=== PATIENT | female | born 1935 | race Caucasian/White ===

== ENCOUNTER → 2016-12-30 | Outpatient (CLI) | payer BC ==
[~2016-12-30] MED LIST: ASPI81TA28 PO; ATEN50TA8 PO; CALC-20 PO; MULT-506 PO
[2016-12-30 17:12] LABS: BASO % 1.1 %; BASO ABS # 0.05 K/uL (0-0.2); COMPLETE YES; EOS % 2.5 %; HEMATOCRIT 34.6 % (37-47); IG% 0.2 %; LYMPH % 16.7 %; LYMPH ABS # 0.79 K/uL (1.2-3.4); MEAN CELL VOLUME 106.1 fL (80-100); MEAN CORPUSCULAR HEMOGLOBIN 36.5 pg (25-34); MEAN CORPUSCULAR HGB CONC 34.4 g/dl (32-36); MEAN PLATELET VOLUME 10.4 fL (7.4-10.4); MONO % 15.6 %; NEUT % 63.9 %; PLATELET COUNT 205 K/uL (130-400); RED BLOOD COUNT 3.26 M/uL (4.2-5.4); WHITE BLOOD COUNT 4.73 K/uL (4.8-10.8)
[2016-12-30 20:06] LABS: AST/SGOT 22 U/L (15-37); BLOOD UREA NITROGEN 24 mg/dl (7-18); BUN/CREATININE RATIO 31.4 (10-20); CALCIUM 9.5 mg/dl (8.5-10.1); CARBON DIOXIDE 27 mmol/L (21-32); CHLORIDE 103 mmol/L (98-107); CREATININE 0.77 mg/dl (0.60-1.20); GLUCOSE 94 mg/dl (70-99); POTASSIUM 5.1 mmol/L (3.5-5.1); SODIUM 138 mmol/L (136-145); TRIGLYCERIDES 39 mg/dl (0-150); VERY LOW DENSITY LIPOPROT CALC 8 mg/dl
[2016-12-30 20:20] LABS: ALB/GLOB RATIO 1.1 (0.9-2); ALKALINE PHOSPHATASE 47 U/L (45-117); ALT/SGPT 28 U/L (12-78); CHOLESTEROL 229 mg/dl (0-200); CHOLESTEROL/HDL RATIO 1.7; HDL CHOLESTEROL 131 mg/dl; LDL CHOLESTEROL CALCULATED 90 mg/dl
--- NOTE | 2017-01-04 13:29 | CODING QUERY MEDICAL NECESSITY ---
SUPPORTING DIAGNOSIS NEEDED A supporting diagnosis is required for the test/procedure performed on this patient in order for us to be reimbursed by the patient's insurance. Please provide a supporting diagnosis for the following test/procedure listed below next to the test name along with your signature. *If there is no additional diagnosis for this patient that would support the following test/procedure please document that below next to the test/procedure. Test(s)/Procedure(s) that require a supporting diagnosis: DOS 12/30 * Vitamin B12 DIAGNOSIS: Provider Signature: Date: Thank you Gayatri Clark Health Information Management Once completed, please kindly fax back to [phone] For questions please call [phone]
== END | disposition home or self-care (01) ==
LOC: C.LABBC 14:26
PROVIDERS: ATTEND Internal Medicine Geriatric Medicine
DX: E78.5 Hyperlipidemia, unspecified (principal); Q99.8 Other specified chromosome abnormalities; M81.0 Age-related osteoporosis without current pathological fracture; R63.4 Abnormal weight loss; Z85.3 Personal history of malignant neoplasm of breast

== ENCOUNTER → 2017-02-16 | Outpatient (CLI) | payer BC | END | disposition home or self-care (01) | LOC: C.MAMM 13:28 | PROVIDERS: ATTEND Internal Medicine Geriatric Medicine | DX: M81.0 Age-related osteoporosis without current pathological fracture (principal) ==

== ENCOUNTER → 2017-07-27 | Outpatient (CLI) | payer BC ==
--- NOTE | 2017-07-28 07:43 | MAMMOGRAPHY REPORT ---
BILATERAL DIGITAL SCREENING MAMMOGRAM TOMOSYNTHESIS WITH CAD: 07/27/2017 CLINICAL HISTORY: Asymptomatic. Personal history of breast cancer. Prior reports from the electrical design technologist performing the exam, the left breast was diffusely fi rm and there was crusting around the nipple. TECHNIQUE: Breast tomosynthesis in addition to standard 2D mammography was performed. Current study was also evaluated with a Computer Aided Detection (CAD) system. COMPARISON: Comparison is made to exams dated: 07/22/2016 mammogram, 07/18/2015 mammogram, 07/17/2014 m ammogram - [facility], 07/12/2013 mammogram, and 06/22/2012 mammogram - [facility]. BREAST COMPOSITION: The tissue of both breasts is extremely dense, which lowers the sensitivity of m ammography. FINDINGS: There is a possible faint cluster of microcalcifications in the upper outer posterior righ t breast, for which additional spot magnification views are recommended. There is diffuse skin irregularity, asymmetric size and decreased visualization of the left breast, l ikely due to prior surgery. There is also prominence of the left nipple, and it is difficult to tell if this could also represent a superimposed subareolar focal asymmetry. Further workup in the left breast is also recommended with attempt to obtain a nipple in profile tomosynthesis view as well as u ltrasound throughout the breast to exclude any suspicious mass or focal skin thickening given poor ev aluation mammographically. IMPRESSION: ACR BI-RADS CATEGORY 0: INCOMPLETE EVALUATION: NEED ADDITIONAL IMAGING EVALUATION 1. The possible clustered microcalcifications in the right upper outer quadrant and left breast poss ible subareolar asymmetry need additional imaging evaluation. Attempt should be made to obtain a lef t breast view with the nipple in profile. The patient will be called to schedule an appointment. Approximately 10% of breast cancers are not detected with mammography. A negative mammographic report should not delay biopsy if a clinically suggestive mass is present. Diandra Stephens M.D. ay/:07/27/2017 16:24:56 Dump Grader: Katie ESCOBAR(Chelsi)(Jesse), [facility] letter sent: Addl Imaging 0 BI-RADS Code: ACR BI-RADS Category 0: Incomplete Evaluation: Need Additional Imaging Evaluation
== END | disposition home or self-care (01) ==
LOC: C.MAMM 13:52
PROVIDERS: ATTEND Internal Medicine Geriatric Medicine
DX: Z12.31 Encounter for screening mammogram for malignant neoplasm of breast (principal); Z85.3 Personal history of malignant neoplasm of breast; Z08 Encounter for follow-up examination after completed treatment for malignant neoplasm; R92.0 Mammographic microcalcification found on diagnostic imaging of breast

== ENCOUNTER → 2017-08-02 | Outpatient (CLI) | payer BC ==
--- NOTE | 2017-08-02 14:47 | MAMMOGRAPHY REPORT ---
BILATERAL DIGITAL DIAGNOSTIC MAMMOGRAM TOMOSYNTHESIS AND TARGETED LEFT ULTRASOUND: 08/02/2017 CLINICAL HISTORY: 81-year-old woman with a personal history of left breast cancer, status post lumpec declan and also prior benign left breast biopsy, called back from screening mammography for left breast asymmetry and right breast microcalcification. TECHNIQUE: Spot magnification right CC and ML; spot compression 2-D and tomosynthesis left CC and ML O views were obtained. COMPARISON: Comparison is made to exams dated: 07/27/2017 mammogram, 07/22/2016 mammogram, 07/18/2015 mammogram, 07/17/2014 mammogram - [facility], 07/12/2013 mammogram, and 06/22/2012 m ammogram - [facility]. BREAST COMPOSITION: The tissue of both breasts is extremely dense, which lowers the sensitivity of m ammography. FINDINGS: The spot magnification views of the right breast demonstrate a few scattered benign coarse and round microcalcifications. There are also 2 very faint clusters of punctate microcalcifications in the superior right breast, anterior and posterior aspect of the breast based on the spot magnific ation MLO view, measuring 1-2 mm. When comparing to prior available mammograms, these were likely pr esent on the 07/17/2014 mammogram and are therefore probably benign. The spot compression tomosynthesis views of the left breast demonstrate enlargement and irregularity of the nipple when comparing back to the 2007 and 2008 mammograms. There is a 12 mm asymmetry with p ossible associated architectural distortion in the immediate subareolar left breast (CC tomosynthesis slice ). Overall, there is increased density of the left breast comparing to all available prio r mammograms. A stable coiled biopsy marker in the upper outer anterior left breast. Further evalua tion with ultrasound was performed. Targeted ultrasound was performed in the left breast. There is ill-defined hypoechoic tissue versus mass in the retroareolar and slightly lateral left breast extending from 2:00 through 4:00 axes with indistinct and irregular borders. The biopsy marker clip evident mammographically is thought to be i dentified in the 2:00 periareolar region. This ill-defined hypoechoic mass measures approximately 1. 1 x 0.6 cm and is indeterminate. Comparison to any prior outside ultrasounds and/or ultrasound-guide d biopsies is recommended but this will likely need tissue sampling via an ultrasound-guided core bio psy. No obvious abnormality is identified of the nipple itself and it is unclear why the nipple appe ars more prominent mammographically. IMPRESSION: ACR BI-RADS CATEGORY 4: SUSPICIOUS, TARGETED ULTRASOUND ACR BI-RADS CATEGORY 4: SUSPICIO US 1. There is increased size of the left nipple and increasing density versus asymmetry throughout the left breast most prominent in the anterior subareolar breast. There is an ill-defined hypoechoic 1. 1 cm area of hypoechoic tissue on ultrasound that could represent a mass versus scar tissue. Compari son to any prior outside ultrasounds ultrasound-guided core biopsies is recommended. If these are un able to be obtained and if this hypoechoic area is not visualized on any prior imaging, ultrasound-gu ided core biopsy will be needed in the left breast retroareolar region. 2. There are 2 faint 1-2 mm groupings of punctate microcalcifications in the superior right breast, which may have been present dating back to the 2014 mammograms, therefore likely benign. Pending fur ther evaluation and possible biopsy in the left breast may continue to follow these microcalcificatio ns closely with repeat spot magnification views versus stereotactic biopsy. These results and recommendations were discussed with the patient at the time of the exam. Approximately 10% of breast cancers are not detected with mammography. A negative mammographic report should not delay biopsy if a clinically suggestive mass is present. Diandra Stephens M.D. ay/:08/02/2017 14:14:43 Property Worker: Bhargavi ESCOBAR(Chelsi)(M), [facility] letter sent: Abnormal 4/5 BI-RADS Code: ACR BI-RADS Category 4: Suspicious Ultrasound BI-RADS: ACR BI-RADS Category 4: Suspici ous
== END | disposition home or self-care (01) ==
LOC: C.MAMM 10:40
PROVIDERS: ATTEND Internal Medicine Geriatric Medicine
DX: R92.0 Mammographic microcalcification found on diagnostic imaging of breast (principal); N64.89 Other specified disorders of breast

== ENCOUNTER → 2018-01-05 | Outpatient (CLI) | payer BC ==
--- NOTE | 2018-01-05 13:27 | Discharge Instructions ---
Discharge Instructions Procedure Procedure Date: Jan 05, 2018. Reason for visit: Left Density/Asymmetry-2ND Us Poss Bx. Discharge Discharge Date: Jan 05, 2018. Discharge Diagnosis: status post breast biopsy Instructions Activity Recommendations: Additional Limitations (see below) Return to School/Work: no limitations Recommended Home Diet: No Limitations Provider Instructions: ACTIVITY RECOMMENDATIONS: * No lifting, pushing, pulling or exercising the affected side for three days. RETURN TO SCHOOL/WORK: * You may return to work/school after the procedure, but do not perform any strenuous activities for 24 to 48 hours. MEDICATIONS: * Tylenol (two 325 mg) every four to six hours if needed for mild pain (if not allergic to Tylenol). DIET: * Resume previous diet. SPECIAL CARE INSTRUCTIONS: * Keep biopsy site dry for 24 hours. May shower after 24 hours, but do not soak (bathe) incision. * May remove Tegaderm (plastic patch) tomorrow AFTER showering. * Leave the steri-strips on for one week. Allow the steri-strips to fall off by themselves. If not off after one week, you may remove them. You may place a Bandaid crosswise over the strips, if desired. * Apply ice 10 minutes on and 10 minutes off as needed. * Wear a bra at bedtime to sleep more comfortably for 2-3 days. * Your referring physician should have the results after approximately 5 to 7 business days. * Call for unusual bleeding, fever, drainage, etc or if you have any questions call during normal business hours or after hours call Dr Sheldon, . FOLLOW UP VISIT: Follow-up with Referring Physician as scheduled. Allergies Coded Allergies: No Known Allergies (Unverified , 03/28/14) Major Nixon Recommendations: Call your doctor if: * Temperature above 101 degrees * Pain not relieved by pain medicine ordered * There is increased drainage or redness from any incision * You have any unanswered questions or concerns. Your Doctors Instructions noted above were prepared by provider Anna Sheldon. Patient Signature Section: Patient Instructions Signature Page Deidra Clarissa Patient (or Guardian) Signature/Date: I have read and understand the instructions given to me by my caregivers. Caregiver/RN/Doctor Signature/Date: The above-named patient and/or guardian has received patient instructions on this date. + Original Patient Signature Page (only) stays with chart. Please make copy for patient.
--- NOTE | 2018-01-05 15:28 | MAMMOGRAPHY REPORT ---
ULTRASOUND GUIDED BIOPSY LEFT BREAST: 01/05/2018 CLINICAL HISTORY: Ill-defined hypoechoic region in the left lateral subareolar breast. PATIENT CONSENT: The procedure, risks and benefits were discussed with the patient and informed writt en consent was obtained. A timeout was performed immediately prior to the procedure. PROCEDURE DESCRIPTION: With ultrasound guidance, aseptic technique, and lidocaine as the local anesth etic (1% lidocaine to anesthetize the skin and 1% lidocaine with epinephrine to anesthetize the deepe r tissues), the ill-defined hypoechoic region in the left lateral subareolar breast was sampled 4 crow es with a 14-gauge Achieve biopsy needle. Immediately thereafter, with ultrasound guidance, aseptic technique, and lidocaine as the local anesthetic, a metallic localizer clip (ribbon-shaped) was place d at the biopsy site. Direct pressure was applied to the site immediately post procedure and hemosta sis was achieved. Postprocedure unilateral mammograms were performed which show a new ribbon-shaped biopsy marker clip at the site of the biopsied hypoechoic region. The patient tolerated the procedur e without complication. She was given wound care instructions. The specimens were sent to pathology for analysis. COMPARISON: Comparison is made to exams dated: 08/02/2017 ultrasound, 08/02/2017 mammogram, 07/27/20 17 mammogram, 07/22/2016 mammogram, 07/18/2015 mammogram, and 07/17/2014 mammogram - [facility]. IMPRESSION: ULTRASOUND GUIDED BIOPSY Ultrasound-guided core needle biopsy of the ill-defined hypoechoic region in the left lateral subareo lar breast, with clip placement. The patient will receive pathology results from her referring provi halima. Anna Sheldon M.D. /:01/05/2018 13:45:26 Radio Engineering Teacher: Hayley VELEZ)(Jesse), [facility]
== END | disposition home or self-care (01) ==
LOC: C.MAMM 12:34
PROVIDERS: ATTEND Internal Medicine Geriatric Medicine
DX: C50.912 Malignant neoplasm of unspecified site of left female breast (principal)

== ENCOUNTER → 2018-04-06 | Outpatient (CLI) | payer BC ==
[~2018-04-06] MED LIST changes: +HYDR-5688 PO; +TMPXEOPS OPR
== END | disposition home or self-care (01) ==
LOC: C.CPL 13:02
PROVIDERS: ATTEND Internal Medicine Hematology & Oncology
DX: C50.112 Malignant neoplasm of central portion of left female breast (principal)

== ENCOUNTER → 2018-04-21 | Outpatient (CLI) | payer BC ==
[2018-04-21 10:26] LABS: BASO ABS # 0.06 K/uL (0-0.2); EOS ABS # 0.15 K/uL (0-0.5); HEMATOCRIT 28.3 % (37-47); HEMOGLOBIN 9.7 g/dL (12.0-16.0); IG# 0.02 K/uL (0.00-0.02); LYMPH % 28.2 %; LYMPH ABS # 0.84 K/uL (1.2-3.4); MEAN CELL VOLUME 105.6 fL (80-100); MEAN CORPUSCULAR HEMOGLOBIN 36.2 pg (25-34); MEAN CORPUSCULAR HGB CONC 34.3 g/dl (32-36); MEAN PLATELET VOLUME 9.4 fL (7.4-10.4); MONO % 8.4 %; MONO ABS # 0.25 K/uL (0.11-0.59); NEUT % 55.7 %; NEUT ABS # 1.66 K/uL (1.4-6.5); PLATELET COUNT 230 K/uL (130-400); RED CELL DISTRIBUTION WIDTH SD 49.6 fL (36.4-46.3); WHITE BLOOD COUNT 2.98 K/uL (4.8-10.8)
[2018-04-21 10:46] LABS: ALBUMIN 3.3 gm/dl (3.4-5.0); ALKALINE PHOSPHATASE 56 U/L (45-117); ALT/SGPT 24 U/L (12-78); AST/SGOT 19 U/L (15-37); BLOOD UREA NITROGEN 24 mg/dl (7-18); CALCIUM 9.3 mg/dl (8.5-10.1); CARBON DIOXIDE 28 mmol/L (21-32); CREATININE 0.58 mg/dl (0.60-1.20); GLUCOSE 99 mg/dl (70-99); POTASSIUM 4.7 mmol/L (3.5-5.1); SODIUM 135 mmol/L (136-145); TOTAL PROTEIN 6.6 gm/dl (6.4-8.2)
== END | disposition home or self-care (01) ==
LOC: C.LABSPEC 10:13
PROVIDERS: ATTEND Internal Medicine Hematology & Oncology
DX: C50.112 Malignant neoplasm of central portion of left female breast (principal)

== ENCOUNTER → 2018-04-28 | Outpatient (CLI) | payer BC ==
[2018-04-28 10:46] LABS: HEMATOCRIT 28.7 % (37-47); HEMOGLOBIN 9.8 g/dL (12.0-16.0); MEAN CELL VOLUME 105.5 fL (80-100); MEAN CORPUSCULAR HGB CONC 34.1 g/dl (32-36); MEAN PLATELET VOLUME 9.9 fL (7.4-10.4); PLATELET COUNT 232 K/uL (130-400); RED CELL DISTRIBUTION WIDTH CV 13.2 % (11.5-14.5); RED CELL DISTRIBUTION WIDTH SD 50.1 fL (36.4-46.3); WHITE BLOOD COUNT 1.87 K/uL (4.8-10.8)
[2018-04-28 10:48] LABS: ALBUMIN 3.5 gm/dl (3.4-5.0); ALKALINE PHOSPHATASE 54 U/L (45-117); ALT/SGPT 28 U/L (12-78); AST/SGOT 21 U/L (15-37); BLOOD UREA NITROGEN 23 mg/dl (7-18); CALCIUM 9.6 mg/dl (8.5-10.1); CARBON DIOXIDE 27 mmol/L (21-32); CREATININE 0.63 mg/dl (0.60-1.20); GLUCOSE 89 mg/dl (70-99); POTASSIUM 4.3 mmol/L (3.5-5.1); SODIUM 134 mmol/L (136-145)
[2018-04-28 10:58] LABS: BASO % 1.6 %; BASO ABS # 0.03 K/uL (0-0.2); EOS % 5.3 %; IG# 0.01 K/uL (0.00-0.02); LYMPH % 42.2 %; LYMPH ABS # 0.79 K/uL (1.2-3.4); MONO % 10.2 %; MONO ABS # 0.19 K/uL (0.11-0.59); NEUT % 40.2 %; NEUT ABS # 0.75 K/uL (1.4-6.5)
== END | disposition home or self-care (01) ==
LOC: C.LABSPEC 10:17
PROVIDERS: ATTEND Internal Medicine Hematology & Oncology
DX: C50.112 Malignant neoplasm of central portion of left female breast (principal)

== ENCOUNTER → 2018-05-05 | Outpatient (CLI) | payer BC ==
[2018-05-05 10:11] LABS: BASO % 2.3 %; BASO ABS # 0.07 K/uL (0-0.2); EOS % 2.7 %; EOS ABS # 0.08 K/uL (0-0.5); HEMATOCRIT 29.4 % (37-47); HEMOGLOBIN 9.9 g/dL (12.0-16.0); IG# 0.01 K/uL (0.00-0.02); LYMPH % 30.2 %; MEAN CELL VOLUME 106.1 fL (80-100); MEAN CORPUSCULAR HEMOGLOBIN 35.7 pg (25-34); MEAN CORPUSCULAR HGB CONC 33.7 g/dl (32-36); MEAN PLATELET VOLUME 9.1 fL (7.4-10.4); MONO % 22.5 %; MONO ABS # 0.67 K/uL (0.11-0.59); NEUT ABS # 1.25 K/uL (1.4-6.5); PLATELET COUNT 251 K/uL (130-400); RED CELL DISTRIBUTION WIDTH CV 13.7 % (11.5-14.5); RED CELL DISTRIBUTION WIDTH SD 53.1 fL (36.4-46.3); WHITE BLOOD COUNT 2.98 K/uL (4.8-10.8)
[2018-05-05 10:32] LABS: ALBUMIN 3.4 gm/dl (3.4-5.0); BLOOD UREA NITROGEN 30 mg/dl (7-18); CALCIUM 9.1 mg/dl (8.5-10.1); CARBON DIOXIDE 23 mmol/L (21-32); CREATININE 0.66 mg/dl (0.60-1.20); GLUCOSE 88 mg/dl (70-99); POTASSIUM 4.8 mmol/L (3.5-5.1); SODIUM 137 mmol/L (136-145)
[2018-05-05 10:33] LABS: ALKALINE PHOSPHATASE 62 U/L (45-117); ALT/SGPT 27 U/L (12-78); AST/SGOT 23 U/L (15-37); TOTAL PROTEIN 6.9 gm/dl (6.4-8.2)
== END | disposition home or self-care (01) ==
LOC: C.LABSPEC 10:00
PROVIDERS: ATTEND Internal Medicine Hematology & Oncology
DX: C50.112 Malignant neoplasm of central portion of left female breast (principal)

== ENCOUNTER 2019-10-05 13:06 | Inpatient (IN) ==
[2019-10-05] MEDS ORDERED: SODIUM CHLORIDE 0.9% 1000ML 1,000 ML IV ONE (13:29)
[2019-10-05] MEDS ORDERED: cefTRIAXone SODIUM 1,000 MG/50 ML BAG IV STA (13:32)
[2019-10-05 14:15] LABS: Appearance Urine Turbid (Clear); Bacteria Urine Automated 1+ (Negative); Blood Urine 3+ (Negative); Color Urine Dark Yellow; Glucose Urine UA Negative (Negative); Ketones Urine Negative (Negative); Leukocyte Esterase Urine 2+ (Negative); Nitrite Urine Positive (Negative); Protein Urine 2+ (Negative); RBC Urine Automated >30 /hpf (0-4); Specific Gravity Urine 1.028 (1.000-1.030); Urobilinogen Urine Negative (Negative); WBC Urine Automated >30 /hpf (0-5)
[2019-10-05 14:26] LABS: Bilirubin Urine Negative (Negative); Ictotest Urine Negative (Negative)
[2019-10-05 14:38] LABS: Basophils # (auto) 0.02 K/uL (0-0.2); Basophils % (auto) 0.3 %; Hematocrit (blood only) 32.7 % (37-47); Hemoglobin 10.8 g/dL (12.0-16.0); Immature Granulocytes # (auto) 0.01 K/uL (0.00-0.02); Immature Granulocytes % (auto) 0.1 %; Lymphocytes # (auto) 0.72 K/uL (1.2-3.4); Lymphocytes % (auto) 10.2 %; Mean Corpuscular Hemoglobin 33.9 pg (25-34); Mean Corpuscular Volume 102.5 fL (80-100); Mean Platelet Volume 10.9 fL (7.4-10.4); Monocytes # (auto) 0.75 K/uL (0.11-0.59); Monocytes % (auto) 10.6 %; Neutrophils # (auto) 5.55 K/uL (1.4-6.5); Neutrophils % (auto) 78.8 %; Platelet Count 153 K/uL (130-400); RDW Coefficient of Variation 13.7 % (11.5-14.5); RDW Standard Deviation 51.7 fL (36.4-46.3); Red Blood Count 3.19 M/uL (4.2-5.4); White Blood Count 7.05 K/uL (4.8-10.8)
[2019-10-05 14:53] LABS: Albumin Level 3.1 gm/dl (3.4-5.0); Bilirubin Direct 0.1 mg/dl (0-0.2); Calcium 8.8 mg/dl (8.5-10.1); Creatinine Clr Calc Pharmacy 30.5 ml/min; Est GFR (African American) 56.9; Est GFR (Non-African American) 49.1; Potassium 3.8 mmol/L (3.5-5.1)
[2019-10-05 14:56] LABS: Bilirubin,Total 0.8 mg/dl (0.2-1); Total Protein 6.5 gm/dl (6.4-8.2)
--- NOTE | 2019-10-05 14:58 | CT Scan Report ---
CT abd pelvis wo con CT DOSE: 232.88 mGycm HISTORY: Urinary tract infection. Left abdominal pain. uti llq pain TECHNIQUE: Multiaxial CT images of the abdomen and pelvis were performed without contrast. A dose lo wering technique was utilized adhering to the principles of ALARA. COMPARISON STUDY: None. FINDINGS: Lung bases are clear. The liver and spleen are unremarkable and overall in terms of overall configuration. Pancreas is unremarkable. Right kidney is negative for calcification or hydronephrosis. The left kidney shows moderate hydronephrosis with evidence for a significant distention of the left upper pole calyx as well as left renal pelvis and left ureter. Etiology of the obstruction isn't not entirely clear on this exam. Possible congenital etiology is considered. There is, however evidence f or left perinephric infiltrative changes the possibility of pyelonephritis. The bladder is midline. The bowel pattern is considered nonobstructive. IMPRESSION: 1. Distended left apical calyx associated with a distended infundibulum extending to what is potentia lly a distended left ureter. 2. Etiology is unclear as there is moderate perinephric infiltrative change. 3. The possibility of pyelonephritis versus an additional obstructing etiology must be considered. 4. Retrograde evaluation of the left renal collecting system is suggested. 5. Nonobstructive bowel pattern. 6. Right kidney is negative for hydronephrosis. The remainder the study is unremarkable. ACT 112: Negative or not required by law. The above report was generated using voice recognition software. It may contain grammatical, syntax or spelling errors. Electronically signed by: Josue Cameron M.D. 10/05/2019 2:56 PM
--- NOTE | 2019-10-05 16:46 | History & Physical Report ---
Date of Service October 05, 2019 Assessment & Plan (1) Acute pyelonephritis: Admit to PCU on telemetry for pyelonephritis and possible sepsis. Lactic acid elevated to 2.2, repeat lactic acid in 4 hours. Blood culture and urine culture pending Started ceftriaxone in the ER 1 g IV and continued 2 g IV daily Gentle IV fluid hydration Monitor electrolytes and replenish DVT prophylaxis Lovenox subcu at 40 mg daily Full code Present on Admission?: Yes (2) Hypotension: She was given 1 L of fluid in the ER and her blood pressure improved. Continue monitoring. It is most likely due to pyelonephritis and possible sepsis. Continue IV fluid hydration Present on Admission?: Yes (3) UTI (urinary tract infection): As the above Present on Admission?: Yes (4) HTN (hypertension): Patient heart rate is in 70s and 80s. Continue atenolol 25 mg p.o. nightly Hold if blood pressure less than 120/80 and heart rate less than 60. Present on Admission?: Yes (5) Malignant neoplasm of central portion of left breast in female, estrogen receptor positive: Patient is in remission. Continue tamoxifen 20 mg p.o. nightly. Patient has a port in her right chest. She was told that that is going to be removed at some point but for now it remains there. Present on Admission?: Yes History of Present Illness Chief Complaint: Urinary tract infection, hypotension, possible sepsis Primary Care Provider: Shaq Machuca, The patient is an 84 years old female with past medical history of left breast cancer which was removed in and recurrent breast cancer 18 months ago of the same side, osteoporosis, hypertension, who was sent from her PCP office to the emergency room to be evaluated for hypotension and blood pressure 77/54. Patient reports feeling dizzy and malaise since this morning. Patient also reports dysuria and urgency including left lower quadrant pain. She lives by herself. Patient reports that she is able to take care of herself. Patient states that she had a breast cancer and lumpectomy in and that 18 months ago she was informed that her breast cancer is back to the same site so she was seeing Dr. Hansen. Patient also had a port placed in her right chest but she said that she did not receive chemotherapy except for tamoxifen recently. She states that her new appointment is going to be in October with Dr. Devi Scott. EKG pending. BNP pending. CT abdomen and pelvis shows distended left apical calyx associated with a distended infundibulum expanding to what is potentially a distended left ureter. Etiology is unclear as there is moderate perinephritic infiltrative change. The possibility of pyelonephritis versus an additional obstructing etiology must be considered. Retrograde evaluation of the left renal collecting system is suggested. Nonobstructive bowel pattern. Labs are reviewed which shows WBCs of 7.05, RBCs 3.19, hemoglobin 10.8, hematocrit 32.7, platelets of 153. Sodium 135, potassium 3.8, chloride 102, anion gap 5, BUN 26, creatinine 1.05, GFR 49.1, lactate 2.2, calcium 8.8, total bilirubin 0.8, direct bilirubin 0.1, AST 23, ALT 24, alkaline phosphatase 36, total protein 6.5, albumin 3.1, lipase 78. Urine dark yellow, appearance turbid, urine protein 2+, urine blood 3+, urine nitrate positive, leukocyte Estrace 2+, WBCs over 30, RBCs over 30, epithelial cells 10-20, bacteria 1+. Decision was made to admit patient to PCU on telemetry for possible pyelonephritis, urinary tract infection, possible sepsis and hypotension. Allergies Allergy/AdvReac Type Severity Reaction Status Date / Time No Known Allergies Allergy Verified 10/05/19 14:30 Home Medications Home Medications Medication Instructions Recorded Confirmed Type multivitamin 1 tab PO QDL 06/20/18 10/05/19 History timolol maleate 1 drp OPR BID 06/20/18 10/05/19 History calcium carbonate 500 mg (1,250 1 tab PO QDL tab 06/15/19 10/05/19 History mg)-vitamin D3 200 unit tablet tamoxifen 20 mg tablet 20 mg PO HS 06/15/19 10/05/19 History atenolol [Tenormin] 25 mg PO HS 10/05/19 10/05/19 History Past Med/Surg History Medical History Cancer LEFT BREAST CANCER (1988) - LUMPECTOMY AND SUBTOTAL MASTECTOMY WITH RADIATION ONLY LEFT BREAST CANCER (CURRENTLY) - CURRENT CHEMOTHERAPY(LAST 06/09/18) Glaucoma DROPS ARE PREVENTATIVE H/O cystitis (Resolved) chronic episodes History of supraventricular tachycardia HTN (hypertension) Mitral valve prolapse Osteoarthritis Osteoporosis Surgical History History of colonoscopy History of hysterectomy Partial History of hysterectomy AUTUMN History of left subtotal mastectomy w/ sentinel lymph node biopsy History of lumpectomy of left breast w/ sentinel lymph node biopsy Hx of colonoscopy Family History Grandmother Cancer Son Hypertension Lyme disease Father Stroke Other Glaucoma Social History Preferred Language: [place] Communication Ability: Effective Visual Impairment: No Limitations Hearing Ability: Normal Certified Orthotic Fitter Required: No Beliefs That Will Affect Care: None marital status: single Current Living Situation: Alone current occupational status: retired Other Information That Helps Us Care for You: No Feels Safe at Home: Yes Safety Concerns: Feels Safe At This Time Smoking Status: Former smoker Tobacco Type: cigarettes ; Second Hand Exposure: No ; Hx Alcohol Use: No Hx Substance Use: No Childhood Exposure to Second-Hand Smoke: No caffeine: Yes Dental Care, Regularly: Yes Physical Activity Frequency: 5-6 Times per Week Seatbelt Use: always Sunscreen Use: Yes Review of Systems Review of Systems: All systems reviewed & are unremarkable except as noted in HPI & below Physical Exam Constitutional: WD/WN, vitals as above well developed and + ill appearing Eyes: PERRL, conjunctivae normal, anicteric sclerae ENMT: external ear and nose normal, oropharynx normal Neck: trachea midline, no thyromegaly Respiratory: normal respiratory effort, lungs clear to auscultation Cardiovascular: Rate/Rhythm: regular rate and regular rhythm Heart Sounds: normal S1, normal S2 and + murmur Palpation: + thrill Gastrointestinal (Abdomen): normal bowel sounds, soft, nontender, no hepatosplenomegaly Musculoskeletal: no cyanosis or clubbing, extremities motor strength 5/5 Skin: no rashes, warm and dry Neurologic: patellar DTR's 2+ bilat, sensation intact Psychiatric: A+Ox3, euthymic affect Lymphatic: no cervical or axillary lymphadenopathy Results & Data Vital Signs (Past 12 Hours) Vital Signs Temp Pulse Resp BP Pulse Ox 10/05/19 16:00 71 20 132/74 100 10/05/19 15:30 75 19 118/66 10/05/19 15:00 73 25 H 105/55 L 97 10/05/19 14:30 74 23 109/58 L 10/05/19 14:26 98 10/05/19 14:00 78 29 H 110/56 L 95 10/05/19 13:38 79 21 123/61 95 10/05/19 13:16 36.6 C 85 20 93/60 L 99 Code Status & VTE Plan Code Status Full code VTE Prophylaxis Plan VTE Prophylaxis will be ordered: Yes PG Care Time/CCT Total # of Minutes Spent Total Time Spent with Patient: Total time spent is greater than 50% in coordination of care (as documented) at patient's floor/unit and/or counseling patient: Coding Level of Care Code 95967 Initial Inpt Care Lvl 3 Diagnoses Acute pyelonephritis N10 Hypotension I95.9 UTI (urinary tract infection) N39.0 HTN (hypertension) I10 Malignant neoplasm of central portion of left breast in female, estrogen receptor positive C50.112; Z17.0
[2019-10-05] MEDS ORDERED: ACETAMINOPHEN 325 MG TAB PO PRN (17:54)
[2019-10-05] MEDS ORDERED: MAGNESIUM HYDROXIDE SUSP 30 ML UDC PO PRN (17:54)
[2019-10-05] MEDS ORDERED: POLYETHYLENE (MIRALAX) 17 GM PACK PO PRN (17:54)
[2019-10-05] MEDS ORDERED: PHENAZOPYRIDINE HCL 100 MG TAB PO PRN (17:54)
[2019-10-05] MEDS ORDERED: ONDANSETRON INJ 2 MG/ML 2 ML VIAL IV PRN (17:54)
[2019-10-05] MEDS ORDERED: ALUMINUM/MAGNESIUM SUSP 30 ML UDC PO PRN (17:54)
[2019-10-05] MEDS ORDERED: NSS + 20MEQ KCL 20 MEQ/1,000 ML BAG IV SCH (18:30)
[2019-10-05 18:52] LABS: Estimated Average Glucose 114 mg/dl; Hemoglobin A1C 5.6 % (4.5-5.6)
[2019-10-05 18:54] LABS: Thyroid Stimulating Hormone 2.81 uIu/ml (0.300-4.500); Troponin I 0.027 ng/ml (0-0.045)
[2019-10-05] MEDS ORDERED: ENOXAPARIN INJ 30 MG/0.3 ML SYR SQ SCH (19:00)
--- NOTE | 2019-10-05 20:07 | Emergency Department Note ---
Entered by Lupe Alford acting as a scribe for Onur Chilel History of Present Illness General Chief complaint: Urinary Symptoms Stated complaint: CYSTITIS SYMPTOMS Time Seen by Provider: 10/05/19 13:22 Source: patient History of Present Illness Provider complaint: Urinary Symptoms Onset (ago): day(s) 1 Location: abdomen Maximum Pain Intensity: 1 Relieved By: + medication Exacerbated By: + none Associated symptoms: + denies other symptoms (Hematuria, vaginal discharge or bleeding) and + other (Dysuria, abdominal pain); no cough, no fever/chills and no nausea/vomiting The patient is a 84 year old female who presents to the Emergency Room with complaints of urinary symptoms that began yesterday. The patient states that her symptoms are not exacerbated by anything specific but are relieved by Tylenol. The patient reports experiencing dysuria and abdominal pain. Pain is located over the left lower quadrant. The patient denies experiencing any hematuria, vaginal discharge or bleeding, cough, fever/chills, or nausea/vomiting. The patient also denies any recent falls. Home Medications Home Medications Medication Instructions Recorded Confirmed Type multivitamin 1 tab PO QDL 06/20/18 10/05/19 History timolol maleate 1 drp OPR BID 06/20/18 10/05/19 History calcium carbonate 500 mg (1,250 1 tab PO QDL tab 06/15/19 10/05/19 History mg)-vitamin D3 200 unit tablet tamoxifen 20 mg tablet 20 mg PO HS 06/15/19 10/05/19 History atenolol [Tenormin] 25 mg PO HS 10/05/19 10/05/19 History Allergies Allergy/AdvReac Type Severity Reaction Status Date / Time No Known Allergies Allergy Verified 10/05/19 14:30 Past Med/Surg History Medical History Cancer LEFT BREAST CANCER (1988) - LUMPECTOMY AND SUBTOTAL MASTECTOMY WITH RADIATION ONLY LEFT BREAST CANCER (CURRENTLY) - CURRENT CHEMOTHERAPY(LAST 06/09/18) Glaucoma DROPS ARE PREVENTATIVE H/O cystitis (Resolved) chronic episodes History of supraventricular tachycardia HTN (hypertension) Mitral valve prolapse Osteoarthritis Osteoporosis Surgical History History of colonoscopy History of hysterectomy Partial History of hysterectomy AUTUMN History of left subtotal mastectomy w/ sentinel lymph node biopsy History of lumpectomy of left breast w/ sentinel lymph node biopsy Hx of colonoscopy Family History Grandmother Cancer Son Hypertension Lyme disease Father Stroke Other Glaucoma Social History Preferred Language: Irish Communication Ability: Effective Visual Impairment: No Limitations Hearing Ability: Normal Water Project Manager Required: No Beliefs That Will Affect Care: None marital status: single Current Living Situation: Alone current occupational status: retired Feels Safe at Home: Yes Smoking Status: Former smoker Tobacco Type: cigarettes ; Second Hand Exposure: No ; Hx Alcohol Use: No Hx Substance Use: No Childhood Exposure to Second-Hand Smoke: No caffeine: Yes Dental Care, Regularly: Yes Physical Activity Frequency: 5-6 Times per Week Seatbelt Use: always Sunscreen Use: Yes Review of Systems See HPI for pertinent positives & negatives. and A total of 10 systems reviewed and were otherwise negative Physical Exam Vital Signs Vital Signs - 24 hr 10/05/19 13:16 10/05/19 13:38 10/05/19 14:00 Temperature 36.6 C Temperature Source Oral Pulse Rate 85 79 78 Pulse Rate from SpO2 Sensor Respiratory Rate 20 21 29 H Blood Pressure 93/60 L 123/61 110/56 L Blood Pressure Mean 71 80 60 Pulse Oximetry 99 95 95 Oxygen Delivery Method Room Air Sepsis Recent Fever Within 48 Hours No Sepsis New/Unexplained Change in Mental Status No Sepsis Action Taken by Nursing No Action Required 10/05/19 14:26 10/05/19 14:30 10/05/19 15:00 Temperature Temperature Source Pulse Rate 74 73 Pulse Rate from SpO2 Sensor 73 Respiratory Rate 23 25 H Blood Pressure 109/58 L 105/55 L Blood Pressure Mean 68 69 Pulse Oximetry 98 97 Oxygen Delivery Method Room Air Sepsis Recent Fever Within 48 Hours Sepsis New/Unexplained Change in Mental Status Sepsis Action Taken by Nursing 10/05/19 15:30 10/05/19 16:00 Temperature Temperature Source Pulse Rate 75 71 Pulse Rate from SpO2 Sensor 70 Respiratory Rate 19 20 Blood Pressure 118/66 132/74 Blood Pressure Mean 94 86 Pulse Oximetry 100 Oxygen Delivery Method Sepsis Recent Fever Within 48 Hours Sepsis New/Unexplained Change in Mental Status Sepsis Action Taken by Nursing GENERAL: She is oriented to person, place, and time. She appears well-developed and well-nourished. She does not appear distressed. HENT: Exam performed. Head: Normocephalic and atraumatic. Right Ear: External ear normal. No mastoid tenderness. Left Ear: External ear normal. No mastoid tenderness. Mouth/Throat: The oropharynx is clear and moist. No trismus in the jaw. No dental abscesses or uvula swelling. No oropharyngeal exudate or tonsillar abscesses. EYES: Conjunctivae and EOM are normal. Pupils are equal, round, and reactive to light. Right eye exhibits no discharge. Left eye exhibits no discharge. No scleral icterus. NECK: Normal range of motion. Neck supple. No JVD present. No spinous process tenderness present. No carotid bruit present. No rigidity. No tracheal deviation and normal range of motion present. No Brudzinski's sign and no Kernig's sign noted. CV: Normal rate, regular rhythm, normal heart sounds and intact distal pulses. There is no peripheral edema. Palpable radial pulses bue. PULM/CHEST: Effort normal and breath sounds normal. No respiratory distress. No stridor. She has no wheezes. She has no rales. Chest Wall: She exhibits no tenderness. ABD: The abdomen is soft. Bowel sounds are normal. She has no distension. No mass is present. Pain on palpation of LLQ. There is no rebound, no guarding, no Braxton's sign and no tenderness at McBurney's point. Rovsig negative MUSC/SKEL: Normal range of motion. There is no peripheral edema, tenderness or deformity. LYMPH: No cervical adenopathy. NEURO: She is alert and oriented to person, place, and time. She has normal strength. No cranial nerve deficit or sensory deficit. Coordination and gait normal. GCS eye subscore is 4. GCS verbal subscore is 5. GCS motor subscore is 6. cerbellar tests wnl. SKIN: Skin is warm and dry. She is not diaphoretic. PSYCH: She has a normal mood and affect. Her behavior is normal. Judgment and thought content normal. Course Course 1322: EMR reviewed. Patient was seen at her PCP for a UTI. Urine dip confirmed likely UTI. The patient was sent here due to low BP. BP was 77/54 to 96/60 in the office. The patient was complaining of LLQ pain at that time. Past medical records reviewed. The patient was evaluated in room B12B. A complete history and physical exam was performed. 1509: Vital signs stable. Labs show an lactic acid of 2.[address] shows possible pyelonephritis. Given the patient's hypotension in the office, pyelonephritis, and elevated lactic acidemia, the patient will be admitted to the hospital service. Rocephin IV ordered in the emergency department. I spoke with Dr. Be- Hospitalist about the patient's case and she will accept the patient for further evaluation. Administered Medications Potassium Chloride/Sodium Chloride (Normal Saline W/20 Meq Kcl) 20 meq in 1,000 mls @ 80 mls/hr IV .[id number] Stop: 10/06/19 06:59 Last Admin: 10/05/19 18:47 Dose: 80 mls/hr Documented by: [id number] Discontinued Medications Sodium Chloride (Nss 1000ml) 1,000 mls @ 999 mls/hr IV .[id number] ONE Stop: 10/05/19 14:29 Last Infusion: 10/05/19 15:34 Dose: 0 mls/hr Documented by: [id number] Admin: 10/05/19 14:33 Dose: 999 mls/hr Documented by: [id number] Ceftriaxone Sodium (Rocephin) 1,000 mg in 50 mls @ 100 mls/hr IV NOW STA Stop: 10/05/19 14:01 Last Infusion: 10/05/19 15:17 Dose: 0 mls/hr Documented by: [id number] Admin: 10/05/19 14:34 Dose: 100 mls/hr Documented by: [id number] Medical Decision Making Medical Records Attestation: I reviewed the patient's medical records. Home Medications Current Medication List: was personally reviewed by me Laboratory Data Attestation: I reviewed the patient's lab results. Result diagrams: 10/05/19 14:21 10/05/19 14:21 Lab Results 10/05/19 10/05/19 10/05/19 Range/Units 13:41 14:21 14:21 WBC 7.05 (4.8-10.8) K/uL RBC 3.19 L (4.2-5.4) M/uL Hgb 10.8 L (12.0-16.0) g/dL Hct 32.7 L (37-47) % MCV 102.5 H (80-100) fL MCH 33.9 (25-34) pg MCHC 33.0 (32-36) g/dL RDW Std Deviation 51.7 H (36.4-46.3) fL RDW Coeff of Shereen 13.7 (11.5-14.5) % Plt Count 153 (130-400) K/uL MPV 10.9 H (7.4-10.4) fL Immature Gran % (Auto) 0.1 % Neut % (Auto) 78.8 % Lymph % (Auto) 10.2 % [place] % (Auto) 10.6 % Eos % (Auto) 0.0 % Baso % (Auto) 0.3 % Immature Gran # (Auto) 0.01 (0.00-0.02) K/uL Neut # (Auto) 5.55 (1.4-6.5) K/uL Lymph # (Auto) 0.72 L (1.2-3.4) K/uL [place] # (Auto) 0.75 H (0.11-0.59) K/uL Eos # (Auto) 0.00 (0-0.5) K/uL Baso # (Auto) 0.02 (0-0.2) K/uL Sodium 135 L (136-145) mmol/L Potassium 3.8 (3.5-5.1) mmol/L Chloride 102 (98-107) mmol/L Carbon Dioxide 27 (21-32) mmol/L Anion Gap 5.0 (3-11) BUN 26 H (7-18) mg/dl Creatinine 1.05 (0.6-1.2) mg/dl Est Cr Clr Drug Dosing 30.5 ml/min Est GFR ( Amer) 56.9 Est GFR (Non-Af Amer) 49.1 BUN/Creatinine Ratio 25.0 H (10-20) Glucose 162 H (70-99) mg/dl Lactate (0.4-2.0) mmol/L Calcium 8.8 (8.5-10.1) mg/dl Total Bilirubin 0.8 (0.2-1) mg/dl Direct Bilirubin 0.1 (0-0.2) mg/dl AST 23 (15-37) U/L ALT 24 (12-78) U/L Alkaline Phosphatase 36 L (45-117) U/L Total Protein 6.5 (6.4-8.2) gm/dl Albumin 3.1 L (3.4-5.0) gm/dl Lipase 78 (73-393) U/L Urine Color Dark Yellow Urine Appearance Turbid A (Clear) Urine pH 5.0 (4.5-7.5) Ur Specific [place] 1.028 (1.000-1.030) Urine Protein 2+ H (Negative) Urine Glucose (UA) Negative (Negative) Urine Ketones Negative (Negative) Urine Blood 3+ H (Negative) Urine Nitrite Positive A (Negative) Urine Bilirubin Negative (Negative) Urine Urobilinogen Negative (Negative) Ur Leukocyte Esterase 2+ H (Negative) Urine WBC (Auto) >30 H (0-5) /hpf Urine RBC (Auto) >30 H (0-4) /hpf U Hyaline Cast (Auto) 1-5 (0-5) /lpf U Epithel Cells (Auto) 10-20 H (0-5) /lpf Urine Bacteria (Auto) 1+ H (Negative) Urine Yeast Not Reportable 10/05/19 10/05/19 Range/Units 14:21 16:17 WBC (4.8-10.8) K/uL RBC (4.2-5.4) M/uL Hgb (12.0-16.0) g/dL Hct (37-47) % MCV (80-100) fL MCH (25-34) pg MCHC (32-36) g/dL RDW Std Deviation (36.4-46.3) fL RDW Coeff of Shereen (11.5-14.5) % Plt Count (130-400) K/uL MPV (7.4-10.4) fL Immature Gran % (Auto) % Neut % (Auto) % Lymph % (Auto) % [place] % (Auto) % Eos % (Auto) % Baso % (Auto) % Immature Gran # (Auto) (0.00-0.02) K/uL Neut # (Auto) (1.4-6.5) K/uL Lymph # (Auto) (1.2-3.4) K/uL [place] # (Auto) (0.11-0.59) K/uL Eos # (Auto) (0-0.5) K/uL Baso # (Auto) (0-0.2) K/uL Sodium (136-145) mmol/L Potassium (3.5-5.1) mmol/L Chloride (98-107) mmol/L Carbon Dioxide (21-32) mmol/L Anion Gap (3-11) BUN (7-18) mg/dl Creatinine (0.6-1.2) mg/dl Est Cr Clr Drug Dosing ml/min Est GFR ( Amer) Est GFR (Non-Af Amer) BUN/Creatinine Ratio (10-20) Glucose (70-99) mg/dl Lactate 2.2 H* 1.3 (0.4-2.0) mmol/L Calcium (8.5-10.1) mg/dl Total Bilirubin (0.2-1) mg/dl Direct Bilirubin (0-0.2) mg/dl AST (15-37) U/L ALT (12-78) U/L Alkaline Phosphatase (45-117) U/L Total Protein (6.4-8.2) gm/dl Albumin (3.4-5.0) gm/dl Lipase (73-393) U/L Urine Color Urine Appearance (Clear) Urine pH (4.5-7.5) Ur Specific [place] (1.000-1.030) Urine Protein (Negative) Urine Glucose (UA) (Negative) Urine Ketones (Negative) Urine Blood (Negative) Urine Nitrite (Negative) Urine Bilirubin (Negative) Urine Urobilinogen (Negative) Ur Leukocyte Esterase (Negative) Urine WBC (Auto) (0-5) /hpf Urine RBC (Auto) (0-4) /hpf U Hyaline Cast (Auto) (0-5) /lpf U Epithel Cells (Auto) (0-5) /lpf Urine Bacteria (Auto) (Negative) Urine Yeast Imaging Data Radiologist's Impression: Radiology results as stated below per my review and the radiologist's interpretation: CT abd pelvis wo con CT DOSE: 232.88 mGycm HISTORY: Urinary tract infection. Left abdominal pain. uti llq pain TECHNIQUE: Multiaxial CT images of the abdomen and pelvis were performed without contrast. A dose lowering technique was utilized adhering to the principles of ALARA. COMPARISON STUDY: None. FINDINGS: Lung bases are clear. The liver and spleen are unremarkable and overall in terms of overall configuration. Pancreas is unremarkable. Right kidney is negative for calcification or hydronephrosis. The left kidney shows moderate hydronephrosis with evidence for a significant distention of the left upper pole calyx as well as left renal pelvis and left ureter. Etiology of the obstruction isn't not entirely clear on this exam. Possible congenital etiology is considered. There is, however evidence for left perinephric infiltrative changes the possibility of pyelonephritis. The bladder is midline. The bowel pattern is considered nonobstructive. IMPRESSION: 1. Distended left apical calyx associated with a distended infundibulum extending to what is potentially a distended left ureter. 2. Etiology is unclear as there is moderate perinephric infiltrative change. 3. The possibility of pyelonephritis versus an additional obstructing etiology must be considered. 4. Retrograde evaluation of the left renal collecting system is suggested. 5. Nonobstructive bowel pattern. 6. Right kidney is negative for hydronephrosis. The remainder the study is unremarkable. ACT 112: Negative or not required by law. The above report was generated using voice recognition software. It may contain grammatical, syntax or spelling errors. Electronically signed by: Josue Cameron M.D. 10/05/2019 2:56 PM Blood Pressure Blood Pressure Findings: Low blood pressure Blood Pressure Disposition: further management by hospitalist [facility] Narrative 1322: EMR reviewed. Patient was seen at her PCP for a UTI. Urine dip confirmed likely UTI. The patient was sent here due to low BP. BP was 77/54 to 96/60 in the office. The patient was complaining of LLQ pain at that time. Past medical records reviewed. The patient was evaluated in room B12B. A complete history and physical exam was performed. 1509: Vital signs stable. Labs show an lactic acid of 2.[address] shows possible pyelonephritis. Given the patient's hypotension in the office, pyelonephritis, and elevated lactic acidemia, the patient will be admitted to the hospital service. Rocephin IV ordered in the emergency department. I spoke with Dr. Be- Hospitalist about the patient's case and she will accept the patient for further evaluation. Impression & Plan Acute pyelonephritis, Sepsis Discharge Plan Visit Data *Final* Discharge Date/Time: 10/05/19 17:24 Chief Complaint: Urinary Symptoms Stated Complaint: CYSTITIS SYMPTOMS ED Provider: Onur Chilel Discharge Problem: Acute pyelonephritis, Sepsis Patient Disposition: Admitted As Inpatient Discharge Instructions Interventions: ED Discharge Assessment Last Done: 10/05/19 17:24 Discharge Problem: Sepsis Qualifiers: Sepsis type: sepsis due to unspecified organism Sepsis acute organ dysfunction status: unspecified Qualified Code(s): A41.9 - Sepsis, unspecified organism The scribe's documentation has been prepared under my direction and personally reviewed by me in its entirety. I confirm that the note above accurately reflects all work, treatment, procedures, and medical decision making performed by me.
[2019-10-05] MEDS: TAMOXIFEN CITRATE 10 MG TABLET PO SCH (20:52)
[2019-10-05] MEDS: TIMOLOL MALEATE 0.25% OP SOLN 5 ML BTL OPR SCH (20:52)
[2019-10-05] MEDS ORDERED: ATENOLOL 25 MG TABLET PO SCH (21:00)
[2019-10-06 06:13] LABS: Basophils # (auto) 0.02 K/uL (0-0.2); Basophils % (auto) 0.6 %; Eosinophils # (auto) 0.02 K/uL (0-0.5); Eosinophils % (auto) 0.6 %; Hematocrit (blood only) 30.1 % (37-47); Hemoglobin 10.2 g/dL (12.0-16.0); Immature Granulocytes # (auto) 0.01 K/uL (0.00-0.02); Immature Granulocytes % (auto) 0.3 %; Lymphocytes # (auto) 0.42 K/uL (1.2-3.4); Lymphocytes % (auto) 12.1 %; Mean Corpuscular Hemoglobin 34.8 pg (25-34); Mean Corpuscular Hgb Conc 33.9 g/dL (32-36); Mean Corpuscular Volume 102.7 fL (80-100); Mean Platelet Volume 10.4 fL (7.4-10.4); Monocytes # (auto) 0.73 K/uL (0.11-0.59); Monocytes % (auto) 21.1 %; Neutrophils # (auto) 2.26 K/uL (1.4-6.5); Neutrophils % (auto) 65.3 %; Platelet Count 128 K/uL (130-400); RDW Coefficient of Variation 13.9 % (11.5-14.5); RDW Standard Deviation 52.3 fL (36.4-46.3); Red Blood Count 2.93 M/uL (4.2-5.4); White Blood Count 3.46 K/uL (4.8-10.8)
[2019-10-06 06:43] LABS: Albumin Level 2.6 gm/dl (3.4-5.0); BUN Creatinine Ratio 28.9 (10-20); Calcium 8.1 mg/dl (8.5-10.1); Creatinine Clr Calc Pharmacy 40.7 ml/min; Est GFR (African American) 81.5; Est GFR (Non-African American) 70.3
[2019-10-06 06:46] LABS: Albumin Globulin Ratio 0.8 (0.9-2); Bilirubin,Total 0.4 mg/dl (0.2-1); Globulin 3.3 gm/dl (2.5-4.0); Total Protein 5.9 gm/dl (6.4-8.2)
[2019-10-06] MEDS: TIMOLOL MALEATE 0.25% OP SOLN 5 ML BTL OPR SCH ×2 (09:29→21:47)
[2019-10-06] MEDS: cefTRIAXone SODIUM 2,000 MG/70 ML BAG IV SCH (09:32)
[2019-10-06] MEDS: MULTIVITAMIN TAB PO SCH (11:38)
[2019-10-06] MEDS: CALCIUM 600MG + VIT D 400 IU TAB PO SCH (11:38)
--- NOTE | 2019-10-06 16:00 | Hospitalist Progress Note ---
Date of Service October 06, 2019 Assessment & Plan (1) Sepsis: due to UTI resolved with IV fluids and Rocephin blood cultures negative follow up final urine culture (2) Acute pyelonephritis: sepsis due to pyelonephritis responding well to IV fluids and Ceftriaxone no fever, WBC is 3k, Cr is stable BP improved, fluids stopped encouraged patient to continue to drink a lot of fluid, stay well hydrated will down grade to medical floor (3) Hypotension: resolved after aggressive IV fluids never in shock will hold Atenolol until she is actually hypertensive BP still soft, low normal (4) UTI (urinary tract infection): As the above (5) HTN (hypertension): hold Atenolol until hypertensive (6) Malignant neoplasm of central portion of left breast in female, estrogen receptor positive: Patient is in remission. Continue tamoxifen 20 mg p.o. nightly. Patient has a port in her right chest. She was told that that is going to be removed at some point but for now it remains there. (7) Osteoporosis: continue Calcium supplements Subjective patient feeling much better compared to time of admission more energy, eating better, no fever/chills, no sweats rate and rhythm stable on the monitor, some occasional PVC, discussed that we would move to medical floor reviewed chart since admission reviewed labs, WBC 3k, Hb 10, Cr 0.78 urine culture with gram negative bacilli, blood cultures showing no growth Review of Systems Review of Systems: All systems reviewed & are unremarkable except as noted in HPI & below Physical Exam Constitutional: WD/WN, vitals as above + thin Eyes: PERRL, conjunctivae normal, anicteric sclerae ENMT: external ear and nose normal, oropharynx normal Neck: trachea midline, no thyromegaly Respiratory: normal respiratory effort, lungs clear to auscultation Cardiovascular: RRR, no murmur, no edema Gastrointestinal (Abdomen): normal bowel sounds, soft, nontender, no hepatosplenomegaly Musculoskeletal: no cyanosis or clubbing, extremities motor strength 5/5 Skin: no rashes, warm and dry Neurologic: patellar DTR's 2+ bilat, sensation intact and PERRL, EOMI, accommodation nl, no face palsy, no dysarthria Psychiatric: A+Ox3, euthymic affect Lymphatic: no cervical or axillary lymphadenopathy Results & Data Vital Signs (Past 12 Hours) Vital Signs Temp Pulse Pulse Resp BP Pulse Ox 10/06/19 15:17 36.7 C 84 18 96/59 L 96 10/06/19 13:34 36.9 C 87 18 98/57 L 94 10/06/19 11:46 36.8 C 72 20 95/57 L 98 10/06/19 08:00 87 10/06/19 07:04 36.7 C 84 17 101/50 L 94 10/06/19 04:04 37.5 C 82 18 125/57 L 93 Laboratory Results Laboratory Results - last 24 hr 10/05/19 10/05/19 10/05/19 16:17 18:12 18:13 WBC RBC Hgb Hct MCV MCH MCHC RDW Std Deviation RDW Coeff of Shereen Plt Count MPV Immature Gran % (Auto) Neut % (Auto) Lymph % (Auto) [place] % (Auto) Eos % (Auto) Baso % (Auto) Immature Gran # (Auto) Neut # (Auto) Lymph # (Auto) [place] # (Auto) Eos # (Auto) Baso # (Auto) Sodium Potassium Chloride Carbon Dioxide Anion Gap BUN Creatinine Est Cr Clr Drug Dosing Est GFR ( Amer) Est GFR (Non-Af Amer) BUN/Creatinine Ratio Glucose Estimat Average Glucose 114 Hemoglobin A1c 5.6 Lactate 1.3 Calcium Total Bilirubin AST ALT Alkaline Phosphatase Troponin I NT-Pro-B Natriuret Pep Total Protein Albumin Globulin Albumin/Globulin Ratio Triglycerides Cholesterol LDL Cholesterol, Calc VLDL Cholesterol, Calc HDL Cholesterol Cholesterol/HDL Ratio Procalcitonin 0.16 TSH 10/05/19 10/05/19 10/06/19 18:13 18:15 06:01 WBC 3.46 L RBC 2.93 L Hgb 10.2 L Hct 30.1 L MCV 102.7 H MCH 34.8 H MCHC 33.9 RDW Std Deviation 52.3 H RDW Coeff of Shereen 13.9 Plt Count 128 L MPV 10.4 Immature Gran % (Auto) 0.3 Neut % (Auto) 65.3 Lymph % (Auto) 12.1 [place] % (Auto) 21.1 Eos % (Auto) 0.6 Baso % (Auto) 0.6 Immature Gran # (Auto) 0.01 Neut # (Auto) 2.26 Lymph # (Auto) 0.42 L [place] # (Auto) 0.73 H Eos # (Auto) 0.02 Baso # (Auto) 0.02 Sodium Potassium Chloride Carbon Dioxide Anion Gap BUN Creatinine Est Cr Clr Drug Dosing Est GFR ( Amer) Est GFR (Non-Af Amer) BUN/Creatinine Ratio Glucose Estimat Average Glucose Hemoglobin A1c Lactate 0.8 Calcium Total Bilirubin AST ALT Alkaline Phosphatase Troponin I 0.027 NT-Pro-B Natriuret Pep 1472 Total Protein Albumin Globulin Albumin/Globulin Ratio Triglycerides Cholesterol LDL Cholesterol, Calc VLDL Cholesterol, Calc HDL Cholesterol Cholesterol/HDL Ratio Procalcitonin TSH 2.810 10/06/19 06:01 WBC RBC Hgb Hct MCV MCH MCHC RDW Std Deviation RDW Coeff of Shereen Plt Count MPV Immature Gran % (Auto) Neut % (Auto) Lymph % (Auto) [place] % (Auto) Eos % (Auto) Baso % (Auto) Immature Gran # (Auto) Neut # (Auto) Lymph # (Auto) [place] # (Auto) Eos # (Auto) Baso # (Auto) Sodium 139 Potassium 4.0 Chloride 109 H Carbon Dioxide 26 Anion Gap 3.0 BUN 23 H Creatinine 0.78 Est Cr Clr Drug Dosing 40.7 Est GFR ( Amer) 81.5 Est GFR (Non-Af Amer) 70.3 BUN/Creatinine Ratio 28.9 H Glucose 102 H Estimat Average Glucose Hemoglobin A1c Lactate Calcium 8.1 L Total Bilirubin 0.4 AST 19 ALT 26 Alkaline Phosphatase 34 L Troponin I NT-Pro-B Natriuret Pep Total Protein 5.9 L Albumin 2.6 L Globulin 3.3 Albumin/Globulin Ratio 0.8 L Triglycerides 46 Cholesterol 121 LDL Cholesterol, Calc 54 VLDL Cholesterol, Calc 9 HDL Cholesterol 58 Cholesterol/HDL Ratio 2 Procalcitonin TSH Microbiology 10/05/19 13:41 Urine,Clean Catch Urine Culture - Preliminary Gram negative bacilli Medications Administered Current Inpatient Medications Acetaminophen (Tylenol) 650 mg PO Q4H PRN PRN Reason: Pain or Fever Stop: 11/04/19 17:53 Al Hydrox/Mg Hydrox/Simethicone (Maalox) 15 ml PO Q4H PRN PRN Reason: Dyspepsia Stop: 11/04/19 17:53 Heparin Sodium (Porcine) (Heparin Sod 100 Unit/Ml Flush) 5 ml FLUSH PRN PRN PRN Reason: Flush Stop: 11/04/19 23:14 Heparin Sodium (Porcine) (Heparin Sodium (Porcine)) 5,000 units SQ Q12H [facility] Stop: 11/05/19 20:59 Ceftriaxone Sodium (Rocephin) 2,000 mg in 70 mls @ 140 mls/hr IV Q24H [facility]; Protocol Stop: 10/11/19 08:59 Last Infusion: 10/06/19 10:21 Dose: Infused Documented by: Magnesium Hydroxide (Milk Of Magnesia) 30 ml PO Q12H PRN PRN Reason: Constipation Stop: 11/04/19 17:53 Multivitamins (Multivitamin Tab) 1 tab PO QDL [facility] Stop: 11/05/19 11:29 Last Admin: 10/06/19 11:38 Dose: 1 tab Documented by: Multivitamins/Minerals (Caltrate Plus) 1 tab PO QDL [facility] Stop: 11/05/19 11:29 Last Admin: 10/06/19 11:38 Dose: 1 tab Documented by: Ondansetron HCl (Zofran) 4 mg IV Q6H PRN PRN Reason: Nausea Stop: 11/04/19 17:53 Phenazopyridine HCl (Pyridium) 100 mg PO TID PRN PRN Reason: Dysuria Stop: 11/04/19 17:53 Polyethylene Glycol (Miralax Powder Packet) 17 gm PO DAILY PRN PRN Reason: Constipation Stop: 11/04/19 17:53 Tamoxifen Citrate (Nolvadex) 20 mg PO HS [facility] Stop: 11/04/19 20:59 Last Admin: 10/05/19 20:52 Dose: 20 mg Documented by: Timolol Maleate (Timoptic 0.25% Oph) 1 drops OPR BID [facility] Stop: 11/04/19 20:59 Last Admin: 10/06/19 09:29 Dose: 1 drops Documented by: PG Care Time/CCT Total # of Minutes Spent Total Time Spent with Patient: Total time spent is greater than 50% in coordination of care (as documented) at patient's floor/unit and/or counseling patient: Coding Level of Care Code 77115 Subseq Hosp Care Lvl 3 Diagnoses Sepsis A41.9 Sepsis acute organ dysfunction status: unspecified Sepsis type: sepsis due to unspecified organism Acute pyelonephritis N10 Hypotension I95.9 UTI (urinary tract infection) N39.0 HTN (hypertension) I10 Malignant neoplasm of central portion of left breast in female, estrogen receptor positive C50.112; Z17.0 Osteoporosis M81.0 (1) Sepsis Sepsis acute organ dysfunction status: unspecified Sepsis type: sepsis due to unspecified organism Qualified Code(s): A41.9 - Sepsis, unspecified organism
[2019-10-06] MEDS: HEPARIN SOD 5,000 UNIT/0.5 ML VIAL SQ SCH (21:47)
[2019-10-06] MEDS: TAMOXIFEN CITRATE 10 MG TABLET PO SCH (21:48)
[2019-10-07] MEDS: HEPARIN 100 UNIT/ML 5ML FLUSH FLUSH PRN ×2 (05:47→11:37)
[2019-10-07 06:36] LABS: Basophils # (auto) 0.02 K/uL (0-0.2); Basophils % (auto) 0.5 %; Eosinophils # (auto) 0.15 K/uL (0-0.5); Eosinophils % (auto) 3.8 %; Hematocrit (blood only) 29.9 % (37-47); Hemoglobin 9.8 g/dL (12.0-16.0); Lymphocytes # (auto) 0.76 K/uL (1.2-3.4); Lymphocytes % (auto) 19.5 %; Mean Corpuscular Hemoglobin 33.8 pg (25-34); Mean Corpuscular Hgb Conc 32.8 g/dL (32-36); Mean Corpuscular Volume 103.1 fL (80-100); Mean Platelet Volume 11.1 fL (7.4-10.4); Monocytes # (auto) 0.67 K/uL (0.11-0.59); Monocytes % (auto) 17.2 %; Platelet Count 146 K/uL (130-400); RDW Standard Deviation 52.9 fL (36.4-46.3)
[2019-10-07 07:10] LABS: Albumin Level 2.5 gm/dl (3.4-5.0); BUN Creatinine Ratio 31.4 (10-20); Calcium 8.7 mg/dl (8.5-10.1); Creatinine Clr Calc Pharmacy 43.5 ml/min; Est GFR (African American) 88.3; Est GFR (Non-African American) 76.2; Potassium 3.7 mmol/L (3.5-5.1)
[2019-10-07 07:12] LABS: Albumin Globulin Ratio 0.7 (0.9-2); Bilirubin,Total 0.3 mg/dl (0.2-1); Globulin 3.6 gm/dl (2.5-4.0); Total Protein 6.1 gm/dl (6.4-8.2)
[2019-10-07] MEDS: HEPARIN SOD 5,000 UNIT/0.5 ML VIAL SQ SCH (09:08)
[2019-10-07] MEDS: TIMOLOL MALEATE 0.25% OP SOLN 5 ML BTL OPR SCH (09:09)
[2019-10-07] MEDS: cefTRIAXone SODIUM 2,000 MG/70 ML BAG IV SCH (09:13)
[2019-10-07] MEDS: CALCIUM 600MG + VIT D 400 IU TAB PO SCH (10:53)
[2019-10-07] MEDS: MULTIVITAMIN TAB PO SCH (10:53)
--- NOTE | 2019-10-07 11:22 | Discharge Summary ---
Date of Service October 07, 2019 Admission HPI Per Admitting Provider The patient is an 84 years old female with past medical history of left breast cancer which was removed in and recurrent breast cancer 18 months ago of the same side, osteoporosis, hypertension, who was sent from her PCP office to the emergency room to be evaluated for hypotension and blood pressure 77/54. Patient reports feeling dizzy and malaise since this morning. Patient also reports dysuria and urgency including left lower quadrant pain. She lives by herself. Patient reports that she is able to take care of herself. Patient states that she had a breast cancer and lumpectomy in and that 18 months ago she was informed that her breast cancer is back to the same site so she was seeing Dr. Hansen. Patient also had a port placed in her right chest but she said that she did not receive chemotherapy except for tamoxifen recently. She states that her new appointment is going to be in October with Dr. Devi Scott. EKG pending. BNP pending. CT abdomen and pelvis shows distended left apical calyx associated with a distended infundibulum expanding to what is potentially a distended left ureter. Etiology is unclear as there is moderate perinephritic infiltrative change. The possibility of pyelonephritis versus an additional obstructing etiology must be considered. Retrograde evaluation of the left renal collecting system is suggested. Nonobstructive bowel pattern. Labs are reviewed which shows WBCs of 7.05, RBCs 3.19, hemoglobin 10.8, hematocrit 32.7, platelets of 153. Sodium 135, potassium 3.8, chloride 102, anion gap 5, BUN 26, creatinine 1.05, GFR 49.1, lactate 2.2, calcium 8.8, total bilirubin 0.8, direct bilirubin 0.1, AST 23, ALT 24, alkaline phosphatase 36, total protein 6.5, albumin 3.1, lipase 78. Urine dark yellow, appearance turbid, urine protein 2+, urine blood 3+, urine nitrate positive, leukocyte Estrace 2+, WBCs over 30, RBCs over 30, epithelial cells 10-20, bacteria 1+. Decision was made to admit patient to PCU on telemetry for possible pyelonephr itis, urinary tract infection, possible sepsis and hypotension. Principal Diagnosis Pyelonephritis Discharge Exam Constitutional WD/WN, vitals as above + thin Eyes PERRL, conjunctivae normal, anicteric sclerae ENMT external ear and nose normal, oropharynx normal Neck trachea midline, no thyromegaly Respiratory normal respiratory effort, lungs clear to auscultation Cardiovascular RRR, no murmur, no edema Gastrointestinal (Abdomen) normal bowel sounds, soft, nontender, no hepatosplenomegaly Musculoskeletal no cyanosis or clubbing, extremities motor strength 5/5 Skin no rashes, warm and dry Neurologic patellar DTR's 2+ bilat, sensation intact and PERRL, EOMI, accommodation nl, no face palsy, no dysarthria Psychiatric A+Ox3, euthymic affect Lymphatic no cervical or axillary lymphadenopathy Discharge Data Allergies Allergy/AdvReac Type Severity Reaction Status Date / Time No Known Allergies Allergy Verified 10/05/19 14:30 Consultations 10/05/19 15:10 ED Decision to Admit Stat Ordered Studies 10/05/19 13:30 CT abd pelvis wo con Stat Hospital Course (1) Sepsis: due to UTI resolved with IV fluids and Rocephin blood cultures negative urine culture with winters sensitive E coli d/c home on Keflex 500mg BID x 12 more days (2) Acute pyelonephritis: sepsis due to pyelonephritis responded well to IV fluids and Ceftriaxone no fever, WBC is 3k, Cr is stable BP improved, fluids stopped encouraged patient to continue to drink a lot of fluid, stay well hydrated as above, d/c home on Keflex 500mg BID x 12 more days (3) Hypotension: resolved after aggressive IV fluids never in shock will resume Atenolol on d/c as BP now elevated (4) UTI (urinary tract infection): As the above (5) HTN (hypertension): resume Atenolol on discharge (6) Malignant neoplasm of central portion of left breast in female, estrogen receptor positive: Patient is in remission. Continue tamoxifen 20 mg p.o. nightly. Patient has a port in her right chest. She was told that that is going to be removed at some point but for now it remains there. (7) Osteoporosis: continue Calcium supplements Total Time Total Time Spent Total Time Spent (In Minutes): 31 minutes Total Time Includes: Examination of the Patient, Discharge Planning and Medication Reconciliation Discharge Plan Discharge Items Patient Disposition: Home - Self-Care Reason For Visit: UTI,HYPOTENSION,POSSIBLE SEPSIS Discharge Diagnosis: Pyelonephritis Sepsis, resolved Condition on Discharge: Good Goals: complete course of antibiotics stay well hydrated and well nourished follow up with Primary Care Doctor Activity: Resume your previous activity Non-emergency contact: Primary Care Provider Call non-emergency contact if: you have any medication questions, your symptoms worsen, your pain is not controlled and you have a fever Follow-up/Referrals: Shaq Machuca, DO [Primary Care Provider] - 10/12/19 3:30 pm (Please, follow up with Dr. Machuca on October 12 at 3:30 pm. *If you need to change this appointment, call the office at [phone].) Diet: Regular Addtl Attending Provider Instructions: Medications: - KEFLEX: 500mg twice a day for 12 more days, start taking tomorrow morning - PYRIDIUM: take as needed for any bladder spasms Sepsis, pyelonephritis responded well to IV fluids and antibiotics urine culture grew out E coli that was sensitive to all antibiotics received Rocephin while you were here will discharge home on Keflex 500mg twice a day for 12 more days stay well hydrated, well nourished, get rest follow up with Dr. Machuca in one week, call his office for appt Pending Studies at Discharge: No Stand-Alone Forms: My Your Last Chance, Smoking Cessation Medications and DC Order Prescriptions: New phenazopyridine [Pyridium] 100 mg Tablet 100 mg PO TID PRN (Reason: bladder spasms) 10 Days Qty: 20 RF: 0 cephalexin [Keflex] 500 mg capsule 500 mg PO BID 12 Days Qty: 24 RF: 0 Continued tamoxifen 20 mg tablet 20 mg PO HS RF: 0 multivitamin Tablet 1 tab PO QDL RF: 0 timolol maleate 0.5 % Drops 1 drp OPR BID RF: 0 calcium carbonate-vitamin D3 [Calcium 500 + D] 500 mg(1,250mg) -200 unit tablet 1 tab PO QDL RF: 0 atenolol [Tenormin] 50 mg tablet 25 mg PO HS RF: 0 Discharge Orders: Discharge Order (Routine); Ordered 10/07/19 Ordered By: Gonzalez Shah Admission Data Admit Date/Time: 10/05/19 16:29 Attending Provider: Gonzalez Shah Admit Provider: Bella Be Primary Care Provider: Shaq Machuca Other Providers: Bella Be Other Interventions: Discharge Summary Assessment (RN) Last Done: 10/07/19 12:17 DC Date/Time DO NOT enter until pt leaves facility: 10/07/19 15:34 Coding Level of Care Code D/C Day Management >30 mins Diagnoses Sepsis A41.9 Sepsis acute organ dysfunction status: unspecified Sepsis type: sepsis due to unspecified organism Acute pyelonephritis N10 Hypotension I95.9 UTI (urinary tract infection) N39.0 HTN (hypertension) I10 Malignant neoplasm of central portion of left breast in female, estrogen receptor positive C50.112; Z17.0 Osteoporosis M81.0
== END 2019-10-07 15:34 | disposition home or self-care (01) | DRG 872 ==
LOC: ED 13:06 → SUATTDRO 16:29 → 2E 16:29 → 2W 10-06 12:42

== ENCOUNTER 2024-09-06 08:44 | Inpatient (IN) ==
--- NOTE | 2024-09-06 09:01 | Emergency Department Note ---
Impression & Plan CHF (congestive heart failure), Elevated troponin, Pleural effusion ED Provider Note NAME: ERIC RYAN AGE: 89 SEX: F : 1935 ARRIVES VIA: Ambulance INFORMANT: Patient ED PROVIDER(S): Harpreet Jiang DO CHIEF COMPLAINT: Swelling of the lower extremities HPI: Patient is an 89-year-old female with a past medical history of SVT, mitral valve insufficiency, A-fib chronically on Eliquis, who presents to the ER for swelling in her bilateral legs which started she believes over the past 2 days but notes that she has not been looking at her legs as it has been so cold and she has been wearing pants. She denies any headache or change in vision. No chest pain or shortness of breath that she is aware of. She notes that she now has blisters opening up on her feet. No dysuria, urgency, or frequency. No history of CHF or previous MD. No other exacerbating or remitting factors. She has not missed any doses of her Eliquis. ADDITIONAL HISTORY OBTAINED: Per HPI Chronic Medical/Social Conditions Affecting Care: Per HPI PAST MEDICAL HISTORY:See Below PAST SURGICAL HISTORY:See Below FAMILY HISTORY:See Below SOCIAL HISTORY:See Below HOME MEDICATIONS:See Below ALLERGIES:See Below VITALS:See Below PHYSICAL EXAMINATION: GENERAL: Sitting up in bed, alert, well appearing, well nourished, no distress, non-toxic EYE EXAM: normal conjunctiva. OROPHARYNX: no exudate, no erythema, lips, buccal mucosa, and tongue normal and mucous membranes are moist NECK: supple, no nuchal rigidity, no adenopathy, non-tender LUNGS: Clear to auscultation. Normal chest wall mechanics HEART: no murmurs, S1 normal and S2 normal ABDOMEN: abdomen soft, non-tender, normo-active bowel sounds, no masses, no rebound or guarding. BACK: Back is symmetrical on inspection and there is no deformity, no midline tenderness, no CVA tenderness. SKIN: Erythema on the dorsal surface of the toes at the MTPs with vesicles which have opened up. Skin is warm and slightly tender. UPPER EXTREMITIES: upper extremities are grossly normal. LOWER EXTREMITIES: Pitting edema in the bilateral lower extremities tracking up the hips NEURO EXAM: Normal sensorium, cranial nerves II-XII grossly intact, normal speech, no gross weakness of arms, no gross weakness of legs. MEDICAL DECISION MAKING: Patient is an 89-year-old female with a past medical history for the above- stated complaint. IV was established and blood work was obtained. Labs show mild leukopenia at 4.4 thousand. Hemoglobin 11.8. BMP along with LFTs bilirubin is unremarkable. Troponin and BNP elevated. Lipase and TSH unremarkable. Chest x-ray with a pleural effusion. Patient was given IV Lasix, updated at bedside discussed case with the hospitalist for new onset CHF. Consults/Care Managements Discussions: Per [facility] Triage Nursing notes reviewed. Limited review of prior medical records performed Vital Signs: reviewed and remarkable for no significant abnormalities Differential diagnosis: Infection, dehydration, metabolic abnormality, hypo/hyperglycemia, electrolyte disturbance, anemia, hypoxia, cardiac sources, intracerebral event, toxicologic, neurologic, as well as other pathologies. ER treatment provided: See below Diagnostics interpreted by me include EKG and cardiac monitoring as listed below: -Cardiac Monitoring: An order was placed for continuous cardiac monitoring. The monitor shows a rate of 110 with A-fib rhythm. -ECG: A-fib rate of 09/18/2011 Right axis No PVCs T wave inversions in the septal leads -Laboratory studies:Interpreted by me as stated above in MDM and shown below. Imaging studies: Xrays: As interpreted by me: Portable AP upright 1 view of the chest shows pulmonary edema CTs show: none Procedures:none Critical Care: None Past Med/Surg History Problem List (Updated 09/06/24 @ 12:33 by Harpreet Jiang DO) Pleural effusion (Acute) Elevated troponin (Acute) CHF (congestive heart failure) (Acute) Elevated troponin Venous stasis Congestive heart failure Dyspnea on exertion Daytime sleepiness HTN (hypertension) History of supraventricular tachycardia Anticoagulant long-term use Mitral valve insufficiency Atrial fibrillation, permanent Hypothyroidism Mild cognitive disorder Macrocytic anemia Underweight Malignant neoplasm of central portion of left breast in female, estrogen receptor positive (Chronic) Diagnosis 12/29 Osteoporosis Medical History Eczema Atrial fibrillation Left shoulder pain H/O cystitis chronic episodes Glaucoma DROPS ARE PREVENTATIVE Osteoarthritis Fracture of neck of left humerus Surgical History History of hysterectomy AUTUMN History of colonoscopy History of left subtotal mastectomy w/ sentinel lymph node biopsy Hx of colonoscopy History of lumpectomy of left breast w/ sentinel lymph node biopsy History of hysterectomy Partial Family History Grandmother Cancer stomach cancer Son Hypertension Lyme disease Father Stroke Unknown Glaucoma Denies family history of Ovarian cancer Prostate cancer Diabetes Myocardial infarction Breast cancer Lung cancer Colorectal cancer Social History Smoking Status: Former smoker Tobacco Type: Cigarettes Age Started Using Tobacco: 19; Age Quit Using Tobacco: 21; packs per day: 0.5; Second Hand Exposure: No; Do You Dip or Chew Tobacco: No; Hx Alcohol Use: Yes Alcohol type: wine Alcohol Intake Frequency: Monthly or Less Hx Substance Use: No Preferred Language: [place] Communication Ability: Effective Visual Impairment: Partially Limited Hearing Ability: Normal [employer] Services Required: No Beliefs That Will Affect Care: None marital status: / Current Living Situation: Alone current occupational status: retired How many Children do You have: 1 Feels Safe at Home: Yes Childhood Exposure to Second-Hand Smoke: No Diet: low salt caffeine: Yes Dental Care, Regularly: Yes Physical Activity Frequency: Daily Seatbelt Use: always Sunscreen Use: No Assistive Devices: Glasses Allergies Allergies Allergy/AdvReac Type Severity Reaction Status Date / Time No Known Drug Allergies Allergy Verified 09/06/24 10:51 Home Meds Home Medications Medication Instructions Recorded Confirmed multivitamin 1 tab PO Q OTHER DAY 06/20/18 09/06/24 tamoxifen 20 mg tablet 20 mg PO DAILY 12/31/20 09/06/24 timolol maleate 0.5 % eye drops 1 drp OPB BID 05/31/23 09/06/24 alendronate 70 mg tablet (Fosamax) 70 mg PO WK 06/24/23 09/06/24 calcium 500 mg (as 1 tab PO Q OTHER DAY 06/24/23 09/06/24 carbonate)-vitamin D3 5 mcg (200 unit) tablet (Calcium 500 + D) ascorbate calcium (vitamin C) 500 500 mg PO Q OTHER DAY 10/15/23 09/06/24 mg tablet furosemide 20 mg tablet 0 mg PO DAILY PRN edema 09/06/24 09/06/24 Previous Rx's Medication Instructions Recorded apixaban 2.5 mg tablet (Eliquis) 2.5 mg PO BID 90 days #180 tabs 04/11/24 levothyroxine 88 mcg tablet 88 mcg PO DAILY #90 tabs 04/19/24 metoprolol tartrate 25 mg tablet 12.5 mg (1/2 x 25 mg) PO BID #90 04/19/24 tabs triamcinolone acetonide 0.1 % 1 applic topical BID #30 grams 04/19/24 topical cream Results & Data (ED) Vital Signs Vital Signs - 24 hr 09/06/24 09:03 09/06/24 09:03 09/06/24 09:18 Temperature 36.6 C 36.6 C Temperature Source Oral Oral Pulse Rate 103 H 90 Pulse Rate [Apical] 103 H Respiratory Rate 18 18 18 Respiratory Effort / Characteristics Non-Labored Spontaneous Non-Labored Spontaneous Respiratory Depth Normal Normal Blood Pressure 177/128 H Blood Pressure [Right Arm] 177/128 H Blood Pressure Mean 144 Blood Pressure Mean [Right Arm] 144 Blood Pressure Position Semi-fowlers Blood Pressure Position [Right Arm] Semi-fowlers Pulse Oximetry 96 103 H 97 Oxygen Delivery Method Room Air Room Air Room Air Sepsis Recent Fever Within 48 Hours No Sepsis New/Unexplained Change in Mental Status N/A Sepsis Action Taken by Nursing No Action Required 09/06/24 09:26 09/06/24 10:00 Temperature Temperature Source Pulse Rate 92 H Pulse Rate [Apical] 97 H Respiratory Rate 22 Respiratory Effort / Characteristics Spontaneous Respiratory Depth Blood Pressure Blood Pressure [Right Arm] 148/117 H Blood Pressure Mean Blood Pressure Mean [Right Arm] 127 Blood Pressure Position Blood Pressure Position [Right Arm] Semi-fowlers Pulse Oximetry 93 Oxygen Delivery Method Room Air Sepsis Recent Fever Within 48 Hours Sepsis New/Unexplained Change in Mental Status Sepsis Action Taken by Nursing Laboratory Data 09/06/24 09:08 09/06/24 09:08 Lab Results 09/06/24 Range/Units 09:08 WBC 4.45 L (4.8-10.8) K/ul RBC 3.37 L (4.20-5.40) M/uL Hgb 11.8 L (12.0-16.0) g/dl Hct 35.6 L (37.0-47.0) % MCV 105.6 H (80.0-100.0) fL MCH 35.0 H (25.0-34.0) pg MCHC 33.1 (32.0-36.0) g/dL RDW Std Deviation 51.1 H (36.4-46.3) fL RDW Coeff of Shereen 13.1 (11.5-14.5) % Plt Count 212 (130-400) K/uL MPV 10.4 (9.4-12.4) fL Immature Gran % (Auto) 0.2 % Neut % (Auto) 68.0 % Lymph % (Auto) 15.7 % [place] % (Auto) 12.1 % Eos % (Auto) 3.1 % Baso % (Auto) 0.9 % Neut # (Auto) 3.02 (1.40-6.50) K/uL Lymph # (Auto) 0.70 L (1.20-3.40) K/uL [place] # (Auto) 0.54 (0.11-0.59) K/uL Eos # (Auto) 0.14 (0.00-0.50) K/uL Baso # (Auto) 0.04 (0.00-0.20) K/uL Immature Gran # (Auto) 0.01 (0.01-0.20) K/uL Sodium 136 (136-145) mmol/L Potassium 4.5 (3.5-5.1) mmol/L Chloride 102 (98-107) mmol/L Carbon Dioxide 29 (21-32) mmol/L Anion Gap 5 (3-11) BUN 24 H (6-23) mg/dl Creatinine 0.76 (0.6-1.2) mg/dl Est Cr Clr Drug Dosing 40.3 ml/min eGFR 75.32 BUN/Creatinine Ratio 31.6 H (10-20) Glucose 97 (70-99(Fasting)) mg/dl Calcium 9.6 (8.6-10.3) mg/dl Total Bilirubin 0.6 (0.2-1.0) mg/dl AST 20 (13-39) U/L ALT 18 (7-52) U/L Alkaline Phosphatase 40 (34-104) U/L Troponin I High Sens 29.6 H (0-14) pg/ml B-Natriuretic Peptide 719 H (0-100) pg/ml Total Protein 6.4 (6.0-8.3) gm/dl Albumin 3.8 (3.4-5.0) gm/dl Globulin 2.6 (2.5-4.0) gm/dl Albumin/Globulin Ratio 1.5 (0.9-2) Lipase 32 (11-82) U/L Administered Medications Metoprolol Tartrate (Metoprolol Tartrate 25 Mg Tab) 12.5 mg PO BID KASHMIR Stop: 10/06/24 10:54 Last Admin: 09/06/24 11:19 Dose: 12.5 mg Documented By: SHAQ Discontinued Medications Furosemide (Furosemide 40 Mg/4 Ml Vial) 40 mg IV ONE ONE Stop: 09/06/24 09:55 Last Admin: 09/06/24 10:17 Dose: 40 mg Documented By: AMS Imaging Data Radiologist's Impression: Chest X-Ray 09/06/24 08:57 EXAM: Radiograph of the Chest 1 View INDICATION: Chest pain. TECHNIQUE: Frontal view of the chest. COMPARISON: 03/14/2024 FINDINGS: Lungs and pleural spaces: Stable small left pleural effusion. No pneumothorax. Chronic interstitial scarring present with mild atelectasis in the left base. Heart: Stable large cardiac shadow. Mediastinum: Normal contour. Bones/joints: Stable ununited left proximal humeral fracture. No acute fracture identified. Soft tissues: No abnormality noted. No radiopaque foreign body noted. Tubes, lines and devices: Right subclavian central venous port catheter terminates in the mid SVC. Upper abdomen: No abnormality noted. IMPRESSION: Mild left basilar atelectasis and small left pleural effusion. ACT 112: Negative or not required by law. Electronically signed by Tigist Scales 09-06-2024 09:34 AM Discharge Plan Visit Data Chief Complaint: Swelling/Edema to Extremity Stated Complaint: LEG EDEMA ED Provider: Harpreet Jiang Discharge Problem: CHF (congestive heart failure), Elevated troponin, Pleural effusion Patient Disposition: Admitted As Inpatient Discharge Instructions Interventions: ED Discharge Assessment Last Done: 09/06/24 11:35 Discharge Problem: CHF (congestive heart failure) Qualifiers: Heart failure type: unspecified Heart failure chronicity: unspecified Qualified Code(s): I50.9 - Heart failure, unspecified
[2024-09-06 09:31] LABS: Basophils # (auto) 0.04 K/uL (0.00-0.20); Basophils % (auto) 0.9 %; Eosinophils # (auto) 0.14 K/uL (0.00-0.50); Eosinophils % (auto) 3.1 %; Hematocrit (blood only) 35.6 % (37.0-47.0); Hemoglobin 11.8 g/dl (12.0-16.0); Immature Granulocytes # (auto) 0.01 K/uL (0.01-0.20); Immature Granulocytes % (auto) 0.2 %; Lymphocytes % (auto) 15.7 %; Mean Corpuscular Hgb Conc 33.1 g/dL (32.0-36.0); Mean Corpuscular Volume 105.6 fL (80.0-100.0); Mean Platelet Volume 10.4 fL (9.4-12.4); Monocytes # (auto) 0.54 K/uL (0.11-0.59); Monocytes % (auto) 12.1 %; Neutrophils # (auto) 3.02 K/uL (1.40-6.50); Platelet Count 212 K/uL (130-400); RDW Coefficient of Variation 13.1 % (11.5-14.5); RDW Standard Deviation 51.1 fL (36.4-46.3); Red Blood Count 3.37 M/uL (4.20-5.40); White Blood Count 4.45 K/ul (4.8-10.8)
--- NOTE | 2024-09-06 09:37 | XRay Report ---
EXAM: Radiograph of the Chest 1 View INDICATION: Chest pain. TECHNIQUE: Frontal view of the chest. COMPARISON: 03/14/2024 FINDINGS: Lungs and pleural spaces: Stable small left pleural effusion. No pneumothorax. Chronic interstitial scarring present with mild atelectasis in the left base. Heart: Stable large cardiac shadow. Mediastinum: Normal contour. Bones/joints: Stable ununited left proximal humeral fracture. No acute fracture identified. Soft tissues: No abnormality noted. No radiopaque foreign body noted. Tubes, lines and devices: Right subclavian central venous port catheter terminates in the mid SVC. Upper abdomen: No abnormality noted. IMPRESSION: Mild left basilar atelectasis and small left pleural effusion. ACT 112: Negative or not required by law. Electronically signed by Tigist Scales 09-06-2024 09:34 AM
[2024-09-06 09:39] LABS: Albumin Globulin Ratio 1.5 (0.9-2); Albumin Level 3.8 gm/dl (3.4-5.0); BUN Creatinine Ratio 31.6 (10-20); Bilirubin,Total 0.6 mg/dl (0.2-1.0); Calcium 9.6 mg/dl (8.6-10.3); Creatinine Clr Calc Pharmacy 40.3 ml/min; Globulin 2.6 gm/dl (2.5-4.0); Potassium 4.5 mmol/L (3.5-5.1); Total Protein 6.4 gm/dl (6.0-8.3)
[2024-09-06 09:46] LABS: Troponin I High Sensitivity 29.6 pg/ml (0-14)
[2024-09-06] MEDS: FUROSEMIDE 40 MG/4 ML VIAL IV ONE (10:17)
--- NOTE | 2024-09-06 10:56 | History & Physical Report ---
Date of Service September 06, 2024 Assessment & Plan (1) Congestive heart failure: Plan: 89-year-old female presenting for 2 days of bilateral lower extremity edema. Found to have elevated BNP on exam, with CXR revealing chronic left pleural effusion. Provided with Lasix x 1 dose in ED. Suspect findings in conjunction w/ clinical presentation represent a new onset heart failure. Will continue IV diuresis. #CHF/Venous Stasis No documented h/o HF; presenting with BLE pitting edema; Weakness 2/2 edema - Admit - Current weight 49.9kg; Daily weights standing, I+Os - Echo (05/2023) - normal LV size and systolic function, EF 65 to 70%, no LVH, moderate biatrial dilation, moderate MR, mild to moderate TR, mild pulmonary HTN, RVSP 42 mmHg, sinus rhythm at time - Pending repeat echo - BNP 719 - CXR mild left basilar atelectasis, small left pleural effusion - Troponin 29.6, pending repeat - Lasix 40mg BID17 IV - Continue metoprolol 12.5mg BID - O2 prn; No O2 at baseline - Bilateral LE wrapped in LEÓN wrap during visit by physician + PA-C; promote leg elevation - Ambulatory dysfunction w/ associated weakness + BLE edema --> PT/OT order placed #Elevated troponin Pt w/ h/o Afib, no documented history of CHF; no current chest pain or palpitations - Troponin 29.6, pending repeat - EKG A-fib with RVR and premature ventricular or aberrantly conducted complexes and rate 112 bpm, without ischemic changes - Likely 2/2 demand #A-fib/HTN Previous history of A-fib, on chronic Eliquis; follows with cardiology most recent visit 01/2024 - EKG on admission showed A-fib with RVR and premature ventricular or aberrantly conducted complexes, and rate 112 bpm - Telemetry showing rate 90s to 100s, rhythm A-fib - Mg pending, TSH pending - Anticoagulated with Eliquis 2.5 twice daily - Rate controlled with metoprolol 25 mg (12.5mg BID) - Continue to monitor on telemetry Chronic conditions: Hypothyroidism- pending repeat TSH, continue levothyroxine H/o BCA- Tamoxifen OP- Alendronate weekly Dispo: Admit Diet: HH, low Na VTE Prophylaxis: Eliquis Code: DNR/DNI This document was dictated utilizing [employer]. Please excuse any grammatical errors that may be secondary to use of this software. (2) Venous stasis: (3) Elevated troponin: (4) Atrial fibrillation, permanent: (5) HTN (hypertension): Admission and Anticipated Discharge Date Admission Date: 09/06/2024 History of Present Illness Chief Complaint: BLE edema Primary Care Provider: Shaq Machuca DO 89-year-old female presenting to ED via EMS from home for bilateral lower extremity edema ongoing x 2 days, with blister developing on right lower extremity the day of arrival. ED course: CMP WBC 4.45, RBC 3.37, H&H 11.8/35.6, MCV 105.6, MCH 35.0, RDW 51.1, lymphocytes 0.70; CMP BUN 24, BUN/creatinine ratio 31.6; troponin 29.6, pending repeat; BNP 719; lipase 32; CXR mild left basilar atelectasis, small left pleural effusion (small left pleural effusion also seen on 02/21/2024 CXR); EKG revealing A-fib with RVR, premature ventricular or aberrantly conducted complexes, rightward axis, rate around 112, QRS 70, QT/QTc 320/436.; Provided with furosemide 40 mg IV x 1 in ED. Patient is an 89-year-old female PMHx of A-fib on Eliquis, SVT, MV insufficiency, previous BCA of left breast, hypothyroidism, and HTN presenting for 2 days of bilateral lower extremities edema. States that she has noticed the bilateral lower extremity edema for the past few days, and it was causing her legs to itch feel comfortable. Patient states that at no time has she had chest pain or chest pressure. She does relay that she sleeps on a chair rather than her bed, but this is not due to her breathing but due to weakness and being unable to get herself out of bed without falling. Patient does not feel as though she has been short of breath. Denying chest pain, palpitation, abdominal pain. She did not take any medications. Please see Dr. Rodriguez's attestation for adjustments/additions to treatment plan. Allergies Allergy/AdvReac Type Severity Reaction Status Date / Time No Known Drug Allergies Allergy Verified 09/06/24 10:51 Home Medications Medication Instructions Recorded Confirmed Type multivitamin 1 tab PO Q OTHER DAY 06/20/18 09/06/24 History tamoxifen 20 mg tablet 20 mg PO DAILY 12/31/20 09/06/24 History timolol maleate 0.5 % eye drops 1 drp OPB BID 05/31/23 09/06/24 History alendronate 70 mg tablet (Fosamax) 70 mg PO WK 06/24/23 09/06/24 History calcium 500 mg (as 1 tab PO Q OTHER DAY 06/24/23 09/06/24 History carbonate)-vitamin D3 5 mcg (200 unit) tablet (Calcium 500 + D) ascorbate calcium (vitamin C) 500 500 mg PO Q OTHER DAY 10/15/23 09/06/24 History mg tablet apixaban 2.5 mg tablet (Eliquis) 2.5 mg PO BID 90 days #180 tabs 04/11/24 09/06/24 Rx levothyroxine 88 mcg tablet 88 mcg PO DAILY #90 tabs 04/19/24 09/06/24 Rx metoprolol tartrate 25 mg tablet 12.5 mg (1/2 x 25 mg) PO BID #90 04/19/24 09/06/24 Rx tabs triamcinolone acetonide 0.1 % 1 applic topical BID #30 grams 04/19/24 09/06/24 Rx topical cream furosemide 20 mg tablet 0 mg PO DAILY PRN edema 09/06/24 09/06/24 History Past Med/Surg History Problem List (Updated 09/06/24 @ 11:08 by Juanita Jones PA-C) Elevated troponin Venous stasis Congestive heart failure Dyspnea on exertion Daytime sleepiness HTN (hypertension) History of supraventricular tachycardia Anticoagulant long-term use Mitral valve insufficiency Atrial fibrillation, permanent Hypothyroidism Mild cognitive disorder Macrocytic anemia Underweight Malignant neoplasm of central portion of left breast in female, estrogen receptor positive (Chronic) Diagnosis 12/29 Osteoporosis Medical History Eczema Atrial fibrillation Left shoulder pain H/O cystitis chronic episodes Glaucoma DROPS ARE PREVENTATIVE Osteoarthritis Fracture of neck of left humerus Surgical History History of hysterectomy AUTUMN History of colonoscopy History of left subtotal mastectomy w/ sentinel lymph node biopsy Hx of colonoscopy History of lumpectomy of left breast w/ sentinel lymph node biopsy History of hysterectomy Partial Family History Grandmother Cancer stomach cancer Son Hypertension Lyme disease Father Stroke Unknown Glaucoma Denies family history of Ovarian cancer Prostate cancer Diabetes Myocardial infarction Breast cancer Lung cancer Colorectal cancer Social History Smoking Status: Former smoker Tobacco Type: Cigarettes Age Started Using Tobacco: 19; Age Quit Using Tobacco: 21; packs per day: 0.5; Second Hand Exposure: No; Do You Dip or Chew Tobacco: No; Hx Alcohol Use: Yes Alcohol type: wine Alcohol Intake Frequency: Monthly or Less Hx Substance Use: No Preferred Language: Portuguese Communication Ability: Effective Visual Impairment: Partially Limited Hearing Ability: Normal 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 Beliefs That Will Affect Care: None marital status: / Current Living Situation: Alone current occupational status: retired How many Children do You have: 1 Feels Safe at Home: Yes Childhood Exposure to Second-Hand Smoke: No Diet: low salt caffeine: Yes Dental Care, Regularly: Yes Physical Activity Frequency: Daily Seatbelt Use: always Sunscreen Use: No Assistive Devices: Glasses Review of Systems Review of Systems: All systems reviewed & are unremarkable except as noted in Subjective Physical Exam Physical Exam: General: No acute distress Skin: Warm and dry Head: Normocephalic, atraumatic Eyes: PERRL, conjunctivae clear, sclera non-icteric ENT: External ear and ear canal without swelling; nose atraumatic; good dentition, tongue normal appearance Neck: Supple, no LAD; no JVD Cardio: Slightly tachycardic on and off during visit , no M/G/R, S1 and S2 normal Resp: No respiratory distress, Lungs CTA in all lobes bilaterally, no wheezes, rales, or rhonchi, diminished BS bilateral lower lobs; conversational dyspnea Abdomen: Soft, symmetric, nontender; no masses or hepatosplenomegaly; Bowel sounds normoactive MSK: No deformities, full ROM throughout; pulses palpable and equal; 2+ pitting edema BLE to level of midthigh/hip. Neuro: Awake, alert; Muscle strength 5/5 bilaterally in UE/LE; Sensation intact bilaterally; CN grossly intact Psych: Appropriate mood and affect; good judgement and insight. Results & Data Results & Data Vital Signs (Past 12 Hours) Vital Signs Temp Pulse Pulse Resp BP BP Pulse Ox 09/06/24 10:00 97 H 22 148/117 H 93 09/06/24 09:26 92 H 09/06/24 09:18 90 18 97 09/06/24 09:03 36.6 C 103 H 18 177/128 H 103 H 09/06/24 09:03 36.6 C 103 H 18 177/128 H 96 O2 Del Method 09/06/24 10:00 Room Air 09/06/24 09:26 09/06/24 09:18 Room Air 09/06/24 09:03 Room Air 09/06/24 09:03 Room Air Laboratory Results 09/06/24 09:08 WBC 4.45 L RBC 3.37 L Hgb 11.8 L Hct 35.6 L MCV 105.6 H MCH 35.0 H MCHC 33.1 RDW Std Deviation 51.1 H RDW Coeff of [place] 13.1 Plt Count 212 MPV 10.4 Immature Gran % (Auto) 0.2 Neut % (Auto) 68.0 Lymph % (Auto) 15.7 [place] % (Auto) 12.1 Eos % (Auto) 3.1 Baso % (Auto) 0.9 Neut # (Auto) 3.02 Lymph # (Auto) 0.70 L [place] # (Auto) 0.54 Eos # (Auto) 0.14 Baso # (Auto) 0.04 Immature Gran # (Auto) 0.01 Sodium 136 Potassium 4.5 Chloride 102 Carbon Dioxide 29 Anion Gap 5 BUN 24 H Creatinine 0.76 Est Cr Clr Drug Dosing 40.3 eGFR 75.32 BUN/Creatinine Ratio 31.6 H Glucose 97 Calcium 9.6 Total Bilirubin 0.6 AST 20 ALT 18 Alkaline Phosphatase 40 Troponin I High Sens 29.6 H B-Natriuretic Peptide 719 H Total Protein 6.4 Albumin 3.8 Globulin 2.6 Albumin/Globulin Ratio 1.5 Lipase 32 Diagnostic Findings Chest X-Ray 09/06/24 08:57 EXAM: Radiograph of the Chest 1 View INDICATION: Chest pain. TECHNIQUE: Frontal view of the chest. COMPARISON: 03/14/2024 FINDINGS: Lungs and pleural spaces: Stable small left pleural effusion. No pneumothorax. Chronic interstitial scarring present with mild atelectasis in the left base. Heart: Stable large cardiac shadow. Mediastinum: Normal contour. Bones/joints: Stable ununited left proximal humeral fracture. No acute fracture identified. Soft tissues: No abnormality noted. No radiopaque foreign body noted. Tubes, lines and devices: Right subclavian central venous port catheter terminates in the mid SVC. Upper abdomen: No abnormality noted. IMPRESSION: Mild left basilar atelectasis and small left pleural effusion. ACT 112: Negative or not required by law. Electronically signed by Tigist Scales 09-06-2024 09:34 AM Code Status & VTE Plan Code Status DNR/DNI Supervising Physician Co-Signing Physician Notes Patient seen and examined, chart reviewed, case discussed with Juanita Jones PA-C and I agree with the assessment and plan as above except as otherwise noted Labs and images reviewed 89-year-old female with past medical history of breast cancer, A-fib on appropriately dosed reduced Eliquis, hypothyroidism and no history of MO/CHF who presents with significant weakness on exertion with some dyspnea but no orthopnea or pulmonary edema, and substantial lower extremity edema. On ER evaluation she does have a BNP at 719 without KOKO. On exam she does have trace JVD, lungs are diminished in the bases but clear and without crackles/rales. She has 3+ pitting edema through the lower extremities and thighs bilaterally. She does not have orthopnea but also does not sleep flat as she is so weak she has difficulty sitting up so she sleeps in a sitting position, but this is not due to shortness of breath. At the bedside during attending/PA exam she is conversationally dyspneic and does desat into the high 80s with conversation although is greater than 90% at rest. Last echo was with preserved ejection fraction. Acute heart failure, previously preserved EF, A-fib on anticoagulation Suspect she does have a significant venous stasis component however does have JVD, elevated BNP, and pleural effusion all suggestive of a CHF component with this. No orthopnea but does not sleep laying flat. Recommend venous stasis precautions including leg elevation least 20 minutes 3 times a day. Provider/PA wrapped both of patient's legs with gentle compression using Le[place] wraps through the mid thigh at time of bedside assessment. Continue Lasix twice daily 17 with net goal approximately -1 to 1.5 L daily. Adjust dosing as needed Updated echo ordered due to new CHF component Troponin is mildly elevated 29.6, repeat pending. A-fib without acute ischemic change on EKG. She has not had any chest pain at any point clinically, suspect this is demand Metoprolol given at time of bedside assessment, she missed her morning doses. This is continued. Patient does not have a mag or TSH level checked and has had her Synthroid recently adjusted. Will check mag and replete to goal 2.0, TSH is pending. Will continue 88 mcg dose for now Patient is compliant with her Eliquis and reports she does not miss doses although sometimes takes her morning dose later in the morning if she forgets to take it first thing. Legs are bilaterally shown some chronic venous stasis change but no true asymmetry or calf pain. Low suspicion for DVT, although slightly increased risk due to history of cancer on tamoxifen and with poor mobility. Weakness/deconditioning Patient with chronic weakness into the point where she has trouble sitting up in bed. Had been an avid walker but doing this less in the winter which is likely contributing to the venous stasis Additionally has a poorly healed left shoulder injury with minimal use of her left arm and strength in this arm Will need PT/OT assessments and possible rehab referral Agree with assessment and management as above PG Care Time/CCT Total # of Minutes Spent Total Time Spent with Patient: Total time spent is greater than 50% in coordination of care (as documented) at patient's floor/unit and/or counseling patient: Coding Level of Care Code 18662 INT INP/OBS CARE 3/75MIN Diagnoses Congestive heart failure I50.9 Venous stasis I87.8 Elevated troponin R79.89 Atrial fibrillation, permanent I48.21 HTN (hypertension) I10
[2024-09-06] MEDS: METOPROLOL TARTRATE 25 MG TAB PO SCH ×2 (11:19→19:14)
[2024-09-06 11:50] LABS: Thyroid Stimulating Hormone 2.856 uIu/ml (0.300-4.500)
[2024-09-06] MEDS ORDERED: ONDANSETRON INJ 2 MG/ML 2 ML VIAL IV PRN (12:15)
--- NOTE | 2024-09-06 12:20 | Electrocardiogram Report ---
Test Reason : Blood Pressure : */* mmHG Vent. Rate : 112 BPM Atrial Rate : * BPM P-R Int : * ms QRS Dur : 70 ms QT Int : 320 ms P-R-T Axes : * 93 70 degrees QTcB Int : 436 ms Atrial fibrillation with rapid ventricular response with premature ventricular or aberrantly conducte d complexes Nonspecific T wave abnormality Rightward axis Abnormal ECG When compared with ECG of 17-Dec-2023 15:41, Criteria for Anterior infarct are no longer Present Confirmed by Finn Urias ([id number]) on 09/06/2024 12:20:01 PM Referred By: REFERRED SELF Confirmed By: Finn Urias
[2024-09-06] MEDS: APIXABAN 2.5 MG TAB PO SCH (12:50)
[2024-09-06] MEDS: LEVOTHYROXINE SODIUM 88 MCG TABLET PO SCH (12:50)
[2024-09-06] MEDS: TIMOLOL MALEATE 0.5% OP SOLN 5 ML BTL OP SCH (12:51)
[2024-09-06] MEDS: ACETAMINOPHEN 325 MG TAB PO PRN (12:54)
[2024-09-06] MEDS ORDERED: FUROSEMIDE 40 MG/4 ML VIAL IV SCH (17:00)
[2024-09-06] MEDS: traMADol HCL 50 MG TABLET PO PRN (19:47)
[2024-09-07 06:09] LABS: Basophils # (auto) 0.04 K/uL (0.00-0.20); Basophils % (auto) 0.9 %; Eosinophils % (auto) 2.1 %; Hematocrit (blood only) 31.6 % (37.0-47.0); Hemoglobin 10.7 g/dl (12.0-16.0); Immature Granulocytes # (auto) 0.02 K/uL (0.01-0.20); Immature Granulocytes % (auto) 0.4 %; Lymphocytes # (auto) 0.74 K/uL (1.20-3.40); Lymphocytes % (auto) 15.7 %; Mean Corpuscular Hemoglobin 35.4 pg (25.0-34.0); Mean Corpuscular Hgb Conc 33.9 g/dL (32.0-36.0); Mean Corpuscular Volume 104.6 fL (80.0-100.0); Mean Platelet Volume 10.5 fL (9.4-12.4); Monocytes # (auto) 0.58 K/uL (0.11-0.59); Monocytes % (auto) 12.3 %; Neutrophils # (auto) 3.22 K/uL (1.40-6.50); Neutrophils % (auto) 68.6 %; Platelet Count 180 K/uL (130-400); RDW Coefficient of Variation 12.9 % (11.5-14.5); RDW Standard Deviation 49.9 fL (36.4-46.3); Red Blood Count 3.02 M/uL (4.20-5.40)
[2024-09-07 06:33] LABS: BUN Creatinine Ratio 30.7 (10-20); Calcium 7.2 mg/dl (8.6-10.3); Creatinine Clr Calc Pharmacy 36.4 ml/min
[2024-09-07] MEDS: FUROSEMIDE 40 MG/4 ML VIAL IV SCH (07:30)
[2024-09-07] MEDS: TAMOXIFEN CITRATE 10 MG TABLET PO SCH (07:30)
--- NOTE | 2024-09-07 10:53 | XCELERA ---
[id number] [id number]
--- NOTE | 2024-09-07 12:34 | Hospitalist Progress Note ---
Date of Service September 07, 2024 Assessment & Plan (1) Congestive heart failure: (2) Venous stasis: (3) Elevated troponin: (4) Atrial fibrillation, permanent: (5) HTN (hypertension): Plan 89-year-old female presenting for 2 days of bilateral lower extremity edema. Admitted for further evaluation 2// concern of sxs being related to new diagnosis of CHF versus venous stasis. Deconditioning // Ambulatory dysfunction - Patient states she has hx of recurrent falls due to weakness or imbalance; no noted hx of syncopal episodes - At time of evaluation, patient was seen struggling a little to move from her bedside commode to her bed by herself but was ultimately able to do so - Patient also without good nutrition given bmi of 16.3 and diet that consists mostly of canned salmon with some variant of a carbohydrate. - Will consult PT/OT for evaluation - Will also consult Computer Systems Consultant for evaluation of caloric need B/l LE swelling // Chronic venous stasis - Given improvement with leg elevation as well as lack of SOB or other signs of volume overload, suspect her leg swelling is more a consequence or chronic venous stasis rather than CHF - Echo from 2022 noting normal LV size and systolic function, EF 65 to 70%, no LVH, moderate biatrial dilation, moderate MR, mild to moderate TR, mild pulmonary HTN, RVSP 42 mmHg, sinus rhythm at time; Repeat TTE today showing similar findings save for progression of biatrial dilation to severe and EF of 55-60% - Troponin peaked at 36 - Will dc Lasix given improvement in LE swelling and dehydrated appearance; may resume home Lasix 20 mg PO once hydration status improves. - Continue metoprolol 6.25 mg BID - Continue leg elevation Elevated troponin - No current chest pain or palpitations - Troponin peaked at 36 - Likely 2/2 demand - Continue to monitor telemetry A-fib/HTN - Telemetry showing a fib with rate in 90s-100s - Continue Eliquis 2.5 twice daily - Continue metoprolol 6.25 mg - Continue to monitor on telemetry Chronic conditions: Hypothyroidism- continue levothyroxine H/o BCA- Tamoxifen OP- Alendronate weekly Dispo: Admit Diet: HH, low Na VTE Prophylaxis: Eliquis Code: DNR/DNI Admission and Anticipated Discharge Date Admission Date: September 06, 2024 Supervising Physician Co-Signing Physician Notes Attending attestation Pt seen and examined in concert with Dr. Anders Baker. In agreement with the documented findings as noted in the resident documentation with any exceptions or additions as noted here. Ongoing diffuse weakness unchanged from chronic. Patient reports significant difficulty in ambulation due to combination of h/o shoulder fx with limited recovery and deconditioning from reduced activtiy. Has her groceries delivered to the house but subsists predominantly on bread with canned salmon and ketchup. Walked more during warm weather but has been mostly sedentary at home independently. Son present in room contributes to this history and expresses concern re: intake and ambulation. On examination, S1/S2 nl RRR no MCG. CTAB. Abd NT/ND BS+ve. 1+ pitting edema to the midshin bilateral with general changes c/w venous stasis without significant TTP Generalized weakness/failure to thrive - PT/OT/nutrition consult - counseling provided re: importance of supportive care for ongoing recovery and avoidance of hospitalization. Open to rehab stay if needed, consider escalated baseline care. Bilateral LE edema - likely venous stasis vs. HF with fluid overload - improved with furosemide. Follow up repeat echo. Likely return furosemide to 20mg PO daily with ongoing improvement. Trend creatinine daily. Atrial fibrillation with HTN and elevated troponin on admission - peaked and downtrending - continue apixaban and metoprolol. Telemetry monitoring. Else see resident documentation as noted. Subjective Feels well overall. Notes the swelling in her legs has improved. Denies chest pain, SOB/GORDILLO, fevers, chills, weakness, or any other symptom. Patient states she lives alone in a house and that 3 weeks ago she had a fall for which she had to call her neighbors to help her, who then showed up with the police. After this, she stayed at home and had another fall after a week plus or minus some days, which she describes as her bending down and kneeling on the floor in her bathroom after which she could not stand up. Has hx of shoulder fracture i that happened years ago but no new known fractures. With regards to her diet, her Son was at bedside and notes that she skips breakfast, then usually eats bread and canned salmon or some other form of carbohydrate. Diet is not very varied. Physical Exam Physical Exam: General: No acute distress, thin, non-toxic Skin: Warm and dry Head: Normocephalic, atraumatic Cardio: Irregular rhythm, no M/G/R Resp: No respiratory distress, Lungs CTA b/l, no wheezes, rales, or rhonchi, no conversational dyspnea Abdomen: Soft, symmetric, nontender MSK: No deformities, full ROM throughout; pulses palpable and equal; edema noted from knee to lower leg bilaterally with maybe +1 pitting, non tender Results & Data Results & Data Vital Signs (Past 12 Hours) Vital Signs Temp Pulse Pulse Resp BP Pulse Ox O2 Del Method 09/07/24 11:45 36.3 C L 77 18 96/67 L 96 Room Air 09/07/24 07:29 36.2 C L 68 18 127/81 99 Room Air 09/07/24 05:36 75 09/07/24 03:38 36.7 C 76 18 135/73 97 Room Air Resident Activity Tracking Resident Involvement: Resident Care Provided Care Provided: Adult Hospital Medicine
[2024-09-08 07:07] LABS: Basophils # (auto) 0.04 K/uL (0.00-0.20); Basophils % (auto) 0.9 %; Eosinophils # (auto) 0.09 K/uL (0.00-0.50); Hematocrit (blood only) 30.3 % (37.0-47.0); Hemoglobin 10.3 g/dl (12.0-16.0); Immature Granulocytes # (auto) 0.02 K/uL (0.01-0.20); Immature Granulocytes % (auto) 0.4 %; Lymphocytes # (auto) 0.56 K/uL (1.20-3.40); Lymphocytes % (auto) 12.4 %; Mean Corpuscular Hemoglobin 35.9 pg (25.0-34.0); Mean Corpuscular Volume 105.6 fL (80.0-100.0); Mean Platelet Volume 10.6 fL (9.4-12.4); Monocytes # (auto) 0.54 K/uL (0.11-0.59); Monocytes % (auto) 11.9 %; Neutrophils # (auto) 3.27 K/uL (1.40-6.50); Neutrophils % (auto) 72.4 %; Platelet Count 176 K/uL (130-400); RDW Standard Deviation 50.4 fL (36.4-46.3); Red Blood Count 2.87 M/uL (4.20-5.40); White Blood Count 4.52 K/ul (4.8-10.8)
[2024-09-08 07:34] LABS: BUN Creatinine Ratio 35.6 (10-20); Calcium 6.9 mg/dl (8.6-10.3); Creatinine Clr Calc Pharmacy 38.9 ml/min; Potassium 3.5 mmol/L (3.5-5.1)
[2024-09-08 08:48] LABS: Folate (Folic Acid),Ser orPlas 13.21 ng/ml (>5.38)
[2024-09-08] MEDS: THIAMINE HCL 100 MG TAB PO SCH (09:47)
--- NOTE | 2024-09-08 15:48 | Hospitalist Progress Note ---
Date of Service September 08, 2024 Assessment & Plan (1) Congestive heart failure: (2) Venous stasis: (3) Elevated troponin: (4) Atrial fibrillation, permanent: (5) HTN (hypertension): Plan 89-year-old female presenting for 2 days of bilateral lower extremity edema. Admitted for further evaluation 2/2/ concern of sxs being related to new diagnosis of CHF versus venous stasis. Deconditioning // Ambulatory dysfunction - Patient states she has hx of recurrent falls due to weakness or imbalance; no noted hx of syncopal episodes - Will consult PT/OT for evaluation; PT eval pending to determine dispo - Will also consult School Bus Driver/Custodian for evaluation of caloric need B/l LE swelling // Chronic venous stasis - Given improvement with leg elevation as well as lack of SOB or other signs of volume overload, suspect her leg swelling is more a consequence or chronic venous stasis rather than CHF - Echo from 2022 noting normal LV size and systolic function, EF 65 to 70%, no LVH, moderate biatrial dilation, moderate MR, mild to moderate TR, mild pulmonary HTN, RVSP 42 mmHg, sinus rhythm at time; Repeat TTE today showing similar findings save for progression of biatrial dilation to severe and EF of 55-60% - Troponin peaked at 36 - Continue to hold Lasix - Continue metoprolol 6.25 mg BID - Continue leg elevation and compression stockings Elevated troponin - No current chest pain or palpitations - Troponin peaked at 36 - Likely 2/2 demand - Continue to monitor telemetry A-fib/HTN - Telemetry showing a fib with rate in 90s-100s - Continue Eliquis 2.5 twice daily - Continue metoprolol 6.25 mg - Continue to monitor on telemetry Chronic conditions: Hypothyroidism- continue levothyroxine H/o BCA- Tamoxifen OP- Alendronate weekly Dispo: Discharge home w/ PT and/or HH versus acute inpatient rehab; PT eval pending Diet: HH, low Na VTE Prophylaxis: Eliquis Code: DNR/DNI Admission and Anticipated Discharge Date Admission Date: September 06, 2024 Supervising Physician Co-Signing Physician Notes ATTESTATION I also saw the patient and confirmed beckman portions of the history and exam. I agree with the impression and plan in the resident documentation, and as summarized below. Son at bedside this morning as well. She has no complaints other than generalized weakness (which brought her in) and some tiredness this morning. EXAM VSS CV I/I, rate low 90s Lungs with non labored respirations DATA Labs HgB 10.3 Sodium 143, Potassium 3.5, BUN 26, Cr 0.73 IMPRESSION & PLAN Generalized weakness/failure to thrive - PT/OT/nutrition consult. Open to rehab stay if needed versus increased home services. Bilateral LE edema - likely venous stasis vs. HF with fluid overload - improved with furosemide. Atrial fibrillation with HTN and elevated troponin on admission - peaked and downtrending - continue adjusted low dose apixaban and metoprolol. Telemetry monitoring. Additional per resident documentation. Subjective Patient feeling well overall. No overnight events. Trying to ambulate around the halls with help. No new concerns. Denies chest pain, SOB, fevers, chills, or other new sxs. Physical Exam Physical Exam: General: No acute distress, thin, non-toxic Skin: Warm and dry Head: Normocephalic, atraumatic Cardio: Irregular rhythm, no M/G/R Resp: No respiratory distress, Lungs CTA b/l, no wheezes, rales, or rhonchi, no conversational dyspnea Abdomen: Soft, symmetric, nontender MSK: No deformities, full ROM throughout; pulses palpable and equal; mild swelling in b/l LE Results & Data Results & Data Vital Signs (Past 12 Hours) Vital Signs Temp Pulse Resp BP Pulse Ox O2 Del Method 09/08/24 15:14 36.7 C 90 16 99/64 L 96 Room Air 09/08/24 11:28 36.5 C 83 16 93/68 L 96 Room Air 09/08/24 07:07 36.7 C 82 16 112/71 96 Room Air 09/08/24 03:49 36.5 C 80 18 91/54 L 95 Room Air Resident Activity Tracking Resident Involvement: Resident Care Provided Care Provided: Adult Hospital Medicine
[2024-09-09 03:12] VITALS: TEMP 97.9
[2024-09-09 04:55] LABS: Basophils # (auto) 0.04 K/uL (0.00-0.20); Basophils % (auto) 0.8 %; Hematocrit (blood only) 30.5 % (37.0-47.0); Hemoglobin 10.2 g/dl (12.0-16.0); Immature Granulocytes # (auto) 0.01 K/uL (0.01-0.20); Immature Granulocytes % (auto) 0.2 %; Lymphocytes # (auto) 0.78 K/uL (1.20-3.40); Mean Corpuscular Hemoglobin 34.9 pg (25.0-34.0); Mean Corpuscular Hgb Conc 33.4 g/dL (32.0-36.0); Mean Corpuscular Volume 104.5 fL (80.0-100.0); Mean Platelet Volume 10.1 fL (9.4-12.4); Monocytes % (auto) 12.3 %; Neutrophils # (auto) 3.36 K/uL (1.40-6.50); Neutrophils % (auto) 68.7 %; Platelet Count 183 K/uL (130-400); RDW Coefficient of Variation 12.8 % (11.5-14.5); RDW Standard Deviation 49.3 fL (36.4-46.3); Red Blood Count 2.92 M/uL (4.20-5.40); White Blood Count 4.89 K/ul (4.8-10.8)
[2024-09-09 05:14] LABS: BUN Creatinine Ratio 35.5 (10-20); Calcium 8.8 mg/dl (8.6-10.3); Creatinine Clr Calc Pharmacy 30.5 ml/min; Potassium 4.3 mmol/L (3.5-5.1)
[2024-09-09 07:14] VITALS: BP 106/66; RESP 18; O2SAT 95
[2024-09-09 07:27] VITALS: PULSE 90
[2024-09-09] MEDS: HEPARIN 100 UNIT/ML 5ML FLUSH FLUSH PRN (09:27)
--- NOTE | 2024-09-09 12:27 | Discharge Summary ---
Date of Service September 09, 2024 Admission HPI Per Admitting Provider 89-year-old female presenting to ED via EMS from home for bilateral lower extremity edema ongoing x 2 days, with blister developing on right lower extremity the day of arrival. ED course: CMP WBC 4.45, RBC 3.37, H&H 11.8/35.6, MCV 105.6, MCH 35.0, RDW 51.1, lymphocytes 0.70; CMP BUN 24, BUN/creatinine ratio 31.6; troponin 29.6, pending repeat; BNP 719; lipase 32; CXR mild left basilar atelectasis, small left pleural effusion (small left pleural effusion also seen on 02/21/2024 CXR); EKG revealing A-fib with RVR, premature ventricular or aberrantly conducted complexes, rightward axis, rate around 112, QRS 70, QT/QTc 320/436.; Provided with furosemide 40 mg IV x 1 in ED. Patient is an 89-year-old female PMHx of A-fib on Eliquis, SVT, MV insufficiency, previous BCA of left breast, hypothyroidism, and HTN presenting for 2 days of bilateral lower extremities edema. States that she has noticed the bilateral lower extremity edema for the past few days, and it was causing her legs to itch feel comfortable. Patient states that at no time has she had chest pain or chest pressure. She does relay that she sleeps on a chair rather than her bed, but this is not due to her breathing but due to weakness and being unable to get herself out of bed without falling. Patient does not feel as though she has been short of breath. Denying chest pain, palpitation, abdominal pain. She did not take any medications. Please see Dr. Rodriguez's attestation for adjustments/additions to treatment plan. Admission Exam Per Admitting Provider General: No acute distress Skin: Warm and dry Head: Normocephalic, atraumatic Eyes: PERRL, conjunctivae clear, sclera non-icteric ENT: External ear and ear canal without swelling; nose atraumatic; good dentition, tongue normal appearance Neck: Supple, no LAD; no JVD Cardio: Slightly tachycardic on and off during visit , no M/G/R, S1 and S2 normal Resp: No respiratory distress, Lungs CTA in all lobes bilaterally, no wheezes, rales, or rhonchi, diminished BS bilateral lower lobs; conversational dyspnea Abdomen: Soft, symmetric, nontender; no masses or hepatosplenomegaly; Bowel sounds normoactive MSK: No deformities, full ROM throughout; pulses palpable and equal; 2+ pitting edema BLE to level of midthigh/hip. Neuro: Awake, alert; Muscle strength 5/5 bilaterally in UE/LE; Sensation intact bilaterally; CN grossly intact Psych: Appropriate mood and affect; good judgement and insight. Principal Diagnosis Weakness, chronic venous stasis Discharge Exam General:Alert and oriented, no acute distress, HEENT: Normocephalic, moist oral mucosa, Cardio: Regular rate and rhythm, Resp:Lungs clear to auscultation b/l, no wheezes or rhonchi, GI: Soft and nontender, nondistended, bowel sounds active Skin: Warm, pink, dry, Discharge Data Allergies Allergy/AdvReac Type Severity Reaction Status Date / Time No Known Drug Allergies Allergy Verified 09/06/24 10:51 Consultations 09/06/24 10:16 ED Decision to Admit Stat Hospital Course (1) Congestive heart failure: (2) Venous stasis: (3) Elevated troponin: (4) Atrial fibrillation, permanent: (5) HTN (hypertension): Plan Pt is an 89-year-old female presenting for 2 days of bilateral lower extremity edema and weakness admitted for Ambulatory dysfunction - Patient states she has hx of recurrent falls due to weakness or imbalance; no noted hx of syncopal episodes - pt evaluated by OT; okay to go home - pt wishing to go home - HH services set up prior to discharge; pt to do home PT/OT to work on strength Chronic venous stasis - pt initially presented with bilateral leg edema without signs of cellulitis - no SOB or O2 requirement, improved with elevation, so suspect this is most likely due to chronic venous stasis more than fluid overload - counseled on decreasing salt intake, compression socks, and elevation for the edema - previous echo in 2022; EF 65-70% without LVH, mild pulm HTN; repeat here EF 55-60% with normal LV function, severe atrial dilation (L and R) Total Time Total Time Spent Total Time Spent (In Minutes): 25 minutes Discharge Plan Discharge Items Patient Disposition: Home - Home Health Services Reason For Visit: AFIB,CHFpEF,VENOUS STASIS Discharge Diagnosis: Chronic venous stasis, weakness Activity: As commented below Activity Comment: Activity as tolerated. Non-emergency contact: Primary Care Provider Call non-emergency contact if: you have any medication questions and your symptoms worsen Follow-up/Referrals: Shaq Machuca DO [Primary Care Provider] - 09/18/24 9:30 am Diet: Heart Healthy and Low Sodium (2gm) Addtl Attending Provider Instructions: You were admitted to the hospital for leg swelling and weakness. As we discussed, we believe that your leg swelling is most likely due to venous stasis (blood pooling due to gravity) and not an issue with your heart. Ways you can help keep blood from pulling include; limiting salt intake, elevating your feet whenever you are resting, and wearing compression socks/stockings. These measures should be tried before using a water pill such as lasix (furosemide), as water pills can dehydrate you if you are not drinking much and take it for blood pooling. Dehydration on its own can cause weakness. For your weakness, home health services have been set up to help you at home and help you get home physical therapy. We have decreased your home medication metoprolol tartrate. You were taking 12.5 mg (1/2 of the 25 mg tablet) twice daily, however your blood pressures have been good here with 6.25 mg twice daily instead. You should take your blood pressure at home for the next 2 weeks and take them to your primary care physician for further dose adjustments. Plan to follow up with your primary care physician at the start or middle of this upcoming week. Pending Studies at Discharge: No Stand-Alone Forms: My [facility] Medications and DC Order Prescriptions: New metoprolol tartrate 25 mg Tablet 6.25 mg PO BID 30 Days Qty: 15 2RF furosemide 20 mg tablet 20 mg PO DAILY PRN (Reason: edema) Qty: 10 0RF Rx Instructions: Take as needed for persistent worsening edema. Continued tamoxifen 20 mg tablet 20 mg PO DAILY Eliquis 2.5 mg tablet 2.5 mg PO BID 90 Days Qty: 180 3RF levothyroxine 88 mcg tablet 88 mcg PO DAILY Qty: 90 3RF triamcinolone acetonide 0.1 % cream 1 applic topical BID Qty: 30 1RF alendronate [Fosamax] 70 mg tablet 70 mg PO WK Rx Instructions: Wednesday ascorbate calcium (vitamin C) 500 mg tablet 500 mg PO Q OTHER DAY multivitamin Tablet 1 tab PO Q OTHER DAY timolol maleate 0.5 % drops 1 drp OPB BID Rx Instructions: One drop each eye once daily calcium carbonate-vitamin D3 [Calcium 500 + D] 500 mg-5 mcg (200 unit) tablet 1 tab PO Q OTHER DAY Discontinued metoprolol tartrate 25 mg tablet 12.5 mg PO BID Qty: 90 3RF furosemide 20 mg tablet 0 mg PO DAILY PRN (Reason: edema) Rx Instructions: Pt unsure of this medication: Original Directions: Take 20mg by mouth daily as needed for edema Discharge Orders: Discharge Order (Routine); Ordered 09/09/24 Ordered By: Pooja Meyer/Other Patient Handouts: Furosemide Oral Tablet, Metoprolol Oral Tablet Admission Data Admit Date/Time: 09/06/24 10:56 Attending Provider: Volodymyr Baird Admit Provider: Rolan Rodriguez Primary Care Provider: Shaq Machuca Other Providers: Rolan Rodriguez Other Interventions: Discharge Summary Assessment (RN) Last Done: 09/09/24 14:20 Supervising Physician Co-Signing Physician Notes ATTESTATION I also saw the patient and confirmed beckman portions of the history and exam. I agree with the impression and plan in the resident documentation, and as summarized below. She feels more energetic today. She is eager for discharge. We reviewed recommendations for low salt foods. EXAM VSS CV I/I, rate low 90s Lungs with non labored respirations DATA Labs HgB 10.2 Sodium 138, Potassium 4.3, BUN 33, Cr 0.93 IMPRESSION & PLAN Generalized weakness/failure to thrive - PT/OT/nutrition consult. Home PT/ Bilateral LE edema - likely venous stasis vs. HF with fluid overload - improved with furosemide. Discussed salt in her diet. Atrial fibrillation with HTN and elevated troponin on admission - peaked and downtrending - continue adjusted low dose apixaban and metoprolol. Rate controlled on telemetry. Additional per resident documentation. Resident Activity Tracking Resident Involvement: Resident Care Provided Care Provided: Adult Hospital Medicine
== END 2024-09-09 15:02 | disposition home health service (06) | DRG 303 ==
LOC: ED 08:44 → SUATTDRO 10:56 → 2W 10:56